=== PATIENT | female | born 1935 | race Caucasian/White ===

== ENCOUNTER → 2024-07-10 | Outpatient (CLI) | payer MEDICARE, SELFPAY ==
--- NOTE | 2024-07-10 09:01 | ECHOD_ITS ---
Reason For Study: AORTIC INSUFFICIENCY Procedure This was a 2D Doppler, Color Flow transthoracic echocardiogram. Exam performed in department. Left Ventricle Normal LV size. Left ventricular systolic function is normal. The left ventricular ejection fraction is 60 %. Stage 1 diastolic dysfunction. No regional wall motion abnormalities noted. Right Ventricle Normal RV size. Normal systolic function. Atria Normal left atrium. Normal right atrium. Mitral Valve Normal mitral valve. Mild (1+) mitral valve insufficiency. Tricuspid Valve Normal tricuspid valve. Mild (1+) tricuspid valve insufficiency. Pulmonary artery systolic pressure is 42 mmHg. Aortic Valve Trisinus/trileaflet aortic valve. Mild focal aortic valve calcification. Mild (1+) aortic valve insufficiency. Pulmonic Valve Normal pulmonic valve. Mild (1+) pulmonic valve insufficiency. Great Vessels Normal aortic root. The pulmonary artery is normal size. Inferior vena cava collapse with respiration. Pericardium/Pleural No pericardial effusion. MMode/2D Measurements & Calculations LVIDd: 4.7 cm IVSd: 1.0 cm LVOT diam: 1.8 cm LVIDs: 3.0 cm LVPWd: 1.0 cm LVOT area: 2.4 cm2 RVDd: 3.0 cm FS: 35.9 % asc Aorta Diam: 3.9 cm LAV(MOD-bp): 43.8 ml LVAd ap4: 19.9 cm2 LAV(MOD-bp) Indexed: 27.1 ml/m2 LVLd ap4: 6.6 cm LAV(MOD-sp2): 46.6 ml EDV(MOD-sp4): 50.7 ml LAV(MOD-sp4): 41.5 ml EDV(sp4-el): 50.6 ml LVAs ap4: 11.2 cm2 LVLs ap4: 5.7 cm ESV(MOD-sp4): 19.5 ml ESV(sp4-el): 18.7 ml EF(MOD-sp4): 61.5 % EF(sp4-el): 63.0 % LVAd ap2: 16.4 cm2 SV(MOD-sp4): 31.2 ml SV(MOD-sp2): 24.9 ml LVLd ap2: 6.3 cm SI(MOD-sp4): 19.3 ml/m2 SI(MOD-sp2): 15.4 ml/m2 EDV(MOD-sp2): 36.6 ml EDV(sp2-el): 36.0 ml LVAs ap2: 8.2 cm2 LVLs ap2: 5.2 cm ESV(MOD-sp2): 11.7 ml ESV(sp2-el): 11.0 ml EF(MOD-sp2): 68.1 % SV(sp4-el): 31.9 ml Ao sinus diam: 3.[address] Junction: 2.7 cm LA dimension(2D): 3.8 cm LA A4 area: 15.3 cm2 RA A4 area: 10.9 cm2 TAPSE: 1.7 cm Time Measurements MV dec time: 0.22 sec Doppler Measurements & Calculations MV E max zack: 33.9 cm/sec Lat Peak E' Zack: 8.0 cm/sec Med Peak E' Zack: 5.5 cm/sec MV A max zack: 66.5 cm/sec E/E' lat: 4.2 E/E' med: 6.1 MV E/A: 0.51 MV dec slope: 151.6 cm/sec2 Ao V2 max: 143.8 cm/sec AI max zack: 436.7 cm/sec Ao max P.3 mmHg AI max P.3 mmHg Ao V2 mean: 104.8 cm/sec AI dec slope: 308.7 cm/sec2 Ao mean P.8 mmHg AI P1/2t: 414.4 msec Ao V2 VTI: 28.4 cm AV (velocity ratio): 0.64 LIZZY(I,D): 1.5 cm2 LIZZY(V,D): 1.6 cm2 LV V1 max: 92.5 cm/sec SV(LVOT): 44.0 ml PA V2 max: 76.0 cm/sec LV V1 max P.4 mmHg PA max PG (full): 1.0 mmHg LV V1 mean P.3 mmHg LV V1 mean: 73.9 cm/sec LV V1 VTI: 18.2 cm TR max zack: 307.3 cm/sec TR max P.8 mmHg ECHO/Echo Complete Interpretation Summary Normal LV size. Left ventricular systolic function is normal. The left ventricular ejection fraction is 60 %. Stage 1 diastolic dysfunction. Mild (1+) aortic valve insufficiency. Ordering Physician: Kim Schaffer Referring Physician: Kim Schaffer Performed By: Hilary Lewis RDCS
== END | disposition home or self-care (01) ==
LOC: CVS 09:00
PROVIDERS: PCP Family Medicine; Referring Provider Family Medicine; Visit Provider Family Medicine
DX: I35.1 Nonrheumatic aortic (valve) insufficiency (principal)
CPT/HCPCS: 93306

== ENCOUNTER → 2024-11-27 | Outpatient (CLI) | payer MEDICARE, SELFPAY ==
--- NOTE | 2024-11-27 08:28 | BI_ITS ---
EXAM: SCRN MAMM (CAD)W/SUKHDEEP BILAT 11/27/2024 CLINICAL HISTORY: F, Age 89 y/o , SCREENING BREAST CANCER RISK ASSESSMENT:
== END | disposition home or self-care (01) ==
LOC: OPBI 08:27
PROVIDERS: PCP Family Medicine; Referring Provider Family Medicine; Visit Provider Family Medicine
DX: Z12.31 Encounter for screening mammogram for malignant neoplasm of breast (principal)
CPT/HCPCS: 77063; 77067

== ENCOUNTER 2025-02-04 08:56 | Outpatient (CLI) | payer MEDICARE, SELFPAY ==
[2025-02-04 10:10] LABS: Hematocrit 40.9 % (37-47); Hemoglobin 12.6 g/dL (12.0-15.0); Mean Corp Hgb Conc 30.8 g/dL (32-36); Mean Corpuscular Hgb 29.8 pg (27.0-32.0); Mean Corpuscular Volume 96.7 fL (81-99); Mean Platelet Vol. 10.6 fl (6.2-12.0); Platelet Count 149 K/mm3 (150-450); RBC Distribution Width SD 49.5 fl (35.1-43.9); Red Blood Count 4.23 M/mm3 (4.2-5.4); White Blood Count 8.3 K/mm3 (4.4-11.0)
--- OUTSIDE RECORDS SUMMARY | 2025-02-04 10:12 | XMS RPT_ITS | CCD ---
Author Organization [facility] Care Team Providers Care Laster Hand Name Role Phone Sarbjit DEVRIES, Dr. Alvarez Primary Care Provider Sarbjit DEVRIES, Dr. Alvarez Referring Provider Dr. Tyler Jones MD Attending Provider Dr. Kim Schaffer MD Attending Provider Dr. Kim Schaffer MD Primary Care Provider Sarbjit DEVRIES, Dr. Alvarez Referring Provider Dr. Damien Hampton MD Attending Provider [phone] Sarbjit, Kim Referring Unavailable Damien Hampton Attending Unavailable Miedel, Kim Primary Care Unavailable Miedel, Kim Referring Unavailable Edgar Pierce Attending Unavailable Miedel, Kim Primary Care Unavailable Tyler Jones Attending Unavailable Miedel, Kim Primary Care Unavailable Tyler Jones Attending Unavailable Miedel, Kim Primary Care Unavailable Miedel, Kim Referring Unavailable Miedel, Kim Referring Unavailable Miedel, Kim Attending Unavailable Miedel, Kim Primary Care Unavailable Leahel, Kim Attending Unavailable Lilyedel, Kim Primary Care Unavailable Karen Elwood Consulting Unavailable Miedel, Kim Referring Unavailable Miedel, Kim Primary Care Unavailable Edgar Pierce Attending Unavailable Miedel, Kim Referring Unavailable Allergies Allergy Classification Reported Allergen(s) Allergy Type Date of Onset Reaction(s) Facility (2 sources) Amoxicillin Drug Allergy 4 Rash [facility] (2 sources) Ampicillin Drug Allergy 4 Rash [facility] (2 sources) Sulfonamides (Antibiotic) Propensity to adverse reactions 4 Rash [facility] (1 source) Amoxicillin Drug Allergy 5 [facility] (1 source) Ampicillin Drug Allergy 5 [facility] (1 source) Sulfonamides (Antibiotic) Drug allergy (disorder) 5 [facility] Medications Current Medications Medication Drug Class(es) Dates Sig (Normalized) Sig (Original) [id number] 200 actuat albuterol 0.09 mg/actuat metered dose inhaler (2 sources) beta2-Adrenergic Agonist Start: 07-10-2024 Albuterol Sulfate (Ventolin Hfa) 90 mcg/actuation HFA aerosol inhaler Active 2 NMA INHALATION EVERY 4-6 HOURS as needed July 10, 2024 1:00am aspirin 81 mg chewable tablet (2 sources) Platelet Aggregation Inhibitor, Nonsteroidal Anti-inflammatory Drug Start: 07-10-2024 take 1 tablet by mouth once daily Aspirin 81 mg tablet,chewable Active 81 mg PO daily July 10, 2024 1:00am azelastine hydrochloride 0.137 mg/actuat / fluticasone propionate 0.05 mg/actuat metered dose nasal spray (2 sources) Corticosteroid, Histamine-1 Receptor Antagonist Start: 07-10-2024 Azelastine-Fluticaso ne 137-50 mcg/spray spray,non-aerosol Active 1 NMA INTRANASAL ONCE as needed July 10, 2024 1:00am administer into each nostril cholecalciferol 0.025 mg oral capsule (2 sources) Vitamin D Start: 07-10-2024 take 1 capsule by mouth once daily Cholecalciferol (Vitamin D3) 25 mcg (1,000 unit) capsule Active 25 ug PO daily July 10, 2024 1:00am citalopram 10 mg oral tablet (1 source) Serotonin Reuptake Inhibitor Start: 02-03-2025 take 1 tablet by mouth once daily Citalopram 10 mg tablet Active 10 mg PO daily February 03, 2025 12:00am estradiol 0.1 mg/ml vaginal cream (2 sources) Estrogen Start: 08-09-2024 Estradiol 0.01 % (0.1 mg/gram) cream Active VAGINAL August 09, 2024 1:00am loratadine 10 mg oral tablet (2 sources) Start: 07-10-2024 take 1 tablet by mouth once daily Loratadine (Allergy Relief (Loratadine)) 10 mg tablet Active 10 mg PO daily July 10, 2024 1:00am magnesium oxide 400 mg oral tablet (2 sources) Start: 08-09-2024 take 1 tablet by mouth once daily Magnesium Oxide 400 mg magnesium tablet Active 400 mg PO daily August 09, 2024 1:00am omeprazole 20 mg delayed release oral capsule (2 sources) Proton Pump Inhibitor Start: 07-10-2024 take 1 capsule by mouth once daily Omeprazole 20 mg capsule,delayed release(DR/EC) Active 20 mg PO daily July 10, 2024 1:00am simvastatin 40 mg oral tablet (2 sources) HMG-CoA Reductase Inhibitor Start: 07-10-2024 take 1 tablet by mouth at bedtime Simvastatin 40 mg tablet Active 40 mg PO AT BEDTIME July 10, 2024 1:00am Completed/Discontinued Medications Medication Drug Class(es) Dates Sig (Normalized) Sig (Original) Carica Papaya (Papaya Enzyme) tablet (2 sources) Start: 07-10-2024 End: 02-03-2025 take 1 tablet by mouth once daily at mealtime Carica Papaya (Papaya Enzyme) tablet Discontinued 1 {tbl} PO DAILY July 10, 2024 1:00am February 03, 2025 2:07pm administer with meals Start: 07-10-2024 take 1 tablet by shanika th once daily at mealtime Carica Papaya (Papaya Enzyme) tablet Active 1 {tbl} PO DAILY July 10, 2024 1:00am administer with meals Problems Problem Classification Problem Date Documented Date Episodic/Chronic Cardiac dysrhythmias (2 sources) Supraventricular tachycardia; Translations: [Supraventricular tachycardia] 08-09-2024 Chronic Chronic obstructive pulmonary disease and bronchiectasis (2 sources) Pulmonary emphysema; Translations: [Emphysema, unspecified] 08-09-2024 Chronic Conditions associated with dizziness or vertigo (3 sources) Dizziness; Translations: [Dizziness and giddiness] 08-09-2024 Episodic Delirium, dementia, and amnestic and other cognitive disorders (3 sources) Dementia; Translations: [Unspecified dementia without behavioral disturbance] Onset: 02-03-2025 02-03-2025 Chronic Disorders of lipid metabolism (3 sources) Hyperlipidemia; Translations: [Hyperlipidemia, unspecified] Onset: 08-21-2024 08-09-2024 Chronic Esophageal disorders (2 sources) Gastroesophageal reflux disease; Translations: [Gastro-esophageal reflux disease without esophagitis] 08-09-2024 Chronic Heart valve disorders (3 sources) Aortic valve regurgitation; Translations: [Nonrheumatic aortic (valve) insufficiency] Onset: 08-21-2024 08-09-2024 Chronic Mood disorders (2 sources) Depressive disorder; Translations: [Depression] 08-19-2024 Chronic Comment on above: Pre-existing diagnos is of depression which may be complicating a diagnosis of cognitive impairment. Nutritional deficiencies (2 sources) Vitamin D deficiency; Translations: [Vitamin D deficiency, unspecified] 08-09-2024 Chronic Osteoarthritis (2 sources) Arthritis; Translations: [Unspecified osteoarthritis, unspecified site] 08-09-2024 Chronic Other diseases of bladder and urethra (2 sources) Overactive bladder; Translations: [Overactive bladder] 08-09-2024 Chronic Other lower respiratory disease (2 sources) Fibrosis of lung; Translations: [Pulmonary fibrosis, unspecified] 08-09-2024 Chronic Other nervous system disorders (4 sources) Impaired cognition; Translations: [Other symptoms and signs involving cognitive functions and awareness] 08-09-2024 Episodic Comment on above: This patient was see n for possible dementia. In office testing showed that she recalled 3 out of 3 objects and that her Mini-Mental status exam was 30/30. This seems to be contradictory to the diagnosis of dementia.Patient does have a diagnosis of depression. 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 Other screening for suspected conditions (not mental disorders or infectious disease) (1 source) Encounter for screening mammogram for malignant neoplasm of breast; Translations: [Encounter for screening mammogram for malignant neoplasm of breast] Onset: 12-01-2024 Episodic Pulmonary heart disease (3 sources) Pulmonary hypertension; Translations: [Pulmonary hypertension, unspecified] Onset: 08-21-2024 08-09-2024 Chronic Residual codes; unclassified (2 sources) Insomnia; Translations: [Insomnia, unspecified] 08-09-2024 Episodic Unclassified (1 source) Supraventricular tachycardia, unspecified; Translations: [Supraventricular tachycardia, unspecified] Onset: 08-21-2024 Results Test Name Value Interpretation Reference Range Facility Neurology Visit Reporton Neurology Visit Report [facility] [address], [address] [place] [id number] OFFICE VISIT Date of Service: 02/03/25 MR#: [id number] Acct: [id number] Name: SHYLA KENYON Rep #: [id number] : 1935 Provider: Dr. Damien aceves MD Age/Sex: 89/F Location: [facility] Status: Signed HPI HPI Details: History: The patient is an 89-year-old right-handed woman with a past medical history of pulmonary fibrosis, vitamin D deficiency, cardiac ablation for SVT in 2003, and hyperlipidemia who presents for evaluation of memory loss. She is accompanied by her daughter. She began to exhibit memory difficulty around 2019. Her memory difficulty has been worsened over time. She has a tendency to forget conversations and to repeat conversations. She had some difficulty with making decisions regarding her finances and her finances are now managed by family members. She lives with her son and [id number]. She remains independent in basic activities of daily living at home. She no longer drives. When she had previously driven she had become lost in a familiar location. She has difficulty recalling past events. She has had 2 COVID-19 infections the last of which occurred in 2022 and she had had associated fatigue. She denies having hearing loss, numbness, headaches or visual field loss. She has vague weakness in both legs. She experiences occasional disequilibrium with position change. She has some anxiety. She denies having depression. She had undergone neuropsychological testing on 06/27/2023 in [place] and a report seen on a cell phone available today reported that the patient had some difficulty with working memory, problem-solving and verbal function. Mini-Mental status exam score was 26/30 on 07/10/2024. Past Medical History: As above. There is no history of hypertension, diabetes mellitus, heart disease, stroke, seizure, thyroid disease, cancer, renal disease, or sleep apnea. Social History: There is no history of smoking tobacco. There is no history of alcohol abuse or illicit drug use. She graduated from high school. Family History: There is no family history of cerebral aneurysm, stroke, seizure, or dementia. Review of Systems: As above. The patient has not had any recent fever, rash, weight change, chest pain, shortness of breath, gastrointestinal problems or urinary problems. She has some insomnia. She feels well rested when she awakens in the morning. She denies having depression. She has anxiety. Physical Exam: General: Well-developed, well-nourished female in no acute distress. Neuro: The patient is awake; she is mildly bradyphrenic; speech is fluent; basic conversational language function is within normal limits; Mini-Mental status exam score is 27/30 Cranial nerves: PERRL, 3mm bilaterally; EOMI; visual munguia are full; visual acuity is 20/200 on the right and 20/40 on the left; face is symmetrical; tongue is midline; there are no deficits to pinprick Cerebellar system: No nystagmus or dysmetria Deep tendon reflexes: +2 at the ankles, biceps bilaterally, triceps bilaterally, and brachioradialis bilaterally and +3 at the knees; plantar responses are downward bilaterally Motor: Strength 5/5 in the biceps bilaterally, abductor pollicis brevis muscles bilaterally, first dorsal interosseous muscles bilaterally, quadriceps bilaterally and foot dorsiflexors bilaterally; no drift Sensory: Decreased vibration is noted in the feet; there are no deficits to soft touch or pinprick Gait: Slightly slow HEENT: Normocephalic; atraumatic; tympanic membranes are clear Neck: No bruits Heart: Regular rhythm and rate Extremities: No cyanosis or edema; dorsalis pedis pulses are +2 bilaterally Supplemental Info Cardiac echo (07/10/2024): Normal LV size. Left ventricular systolic function is normal. The left ventricular ejection fraction is 60 %. Stage 1 diastolic dysfunction. Mild (1+) aortic valve insufficiency. EKG (08/21/2024): Sinus rhythm. Left axis. Anterior fascicular block. Voltage criteria for LVH (R (aVL) exceeds 1.01 mV). Voltage criteria without ST/T abnormality may be normal. Old anterior infarct. Abnormal EKG. Assessment and Plan Assessment and Plan (1) Dementia: Status: Acute (2) Vitamin D deficiency: Status: Acute Orders: Orders Brain without Contrast Today F03.90 - Unspecified dementia, unspecified severity, without behavioral disturbance, psychotic disturbance, mood disturbance, and anxiety Vitamin D 1,25-Dihydroxy Today E55.9 - Vitamin D deficiency, unspecified, F03.90 - Unspecified dementia, unspecified severity, without behavioral disturbance, psychotic disturbance, mood disturbance, and anxiety VITAMIN B6 Today F03.90 - Unspecified dementia, unspecified severity, without behavioral disturbance, psychotic disturbance, mood disturbance, and anxiety Vitamin B12 Today F03.90 - Unspecif (more content not included)... Normal [facility] Breast imaging reportOrdered By: Dahiana Serrano on 11-28-2024 Study report [facility] [address] [place] [address] SCRN MAMM (CAD)W/SUKHDEEP BILAT MR#: [id number] Acct: [id number] Name: SHYLA KENYON Rep #: [id number] : 1935 F 89 From: Mario Serrano DO PCP: Dr. Kim Schaffer MD Status: [facility] Study:SCRN MAMM (CAD)W/SUKHDEEP BILAT Date of Exa m: 11/27/24 Exam# [id number] Ordering Dr: Thomas Schaffer MD EXAM: SCRN MAMM (CAD)W/SUKHDEEP BILAT 11/27/2024 CLINICAL HISTORY: F, Age 89 y/o , SCREENING BREAST CANCER RISK ASSESSMENT: Has not been calculated. TECHNIQUE: Bilateral screening digital breast tomosynthesis with 2D images. Computer aided detection. COMPARISON: Prior exam(s) dated mammogram dated 12/15/2022 and 06/29/2020. FINDINGS: TISSUE DENSITY: The breast tissue is heterogenously dense, which may obscure small masses. Bilateral Breast Mammographic Findings: There are no other dominant masses, areas of architectural distortion, or suspicious calcifications in either breast. Benign-appearing macrocalcifications, round microcalcifications and vascular calcifications are seen in both breasts. A stable benign-appearing intramammary lymph node in the superior outer far posterior aspect of the left breast is noted. A stable 2.8 cm nodular masslike density is seen in the retroareolar region, middle 3rd aspect of the left breast.. BI/SCRN MAMM (CAD)W/SUKHDEEP BILAT IMPRESSION: Right Breast: BIRADS 2 BENIGN FINDING. Left Breast: BIRADS 2 BENIGN FINDING. OVERALL FINAL ASSESSMENT: BIRADS 2 BENIGN FINDING RECOMMENDATION: Routine annual follow-up in 1 Year A letter with findings and recommendations will be mailed to the patient. Reading Location: [id number]-[id number] CC: Dr. Kim Schaffer MD ~ Drum Sander Offbearer: Signed [facility] SCRN MAMM (CAD)W/SUKHDEEP BILATo n 11-27-2024 SCRN MAMM (CAD)W/SUKHDEEP BILAT [facility] [address] [place] [id number] SCRN MAMM (CAD)W/SUKHDEEP BILAT MR#: [id number] Acct: [id number] Name: SHYLA KENYON Rep #: [id number] : 1935 F 89 From: Dahiana Dudley O PCP: Dr. Kim Schaffer MD Status: REG [facility] Study: SCRN MAMM (CAD)W/SUKHDEEP BILAT Date of Exam: 11/03 02/26 Exam# [id number] Ordering Dr: Kim Schaffer MD EXAM: SCRN MAMM (CAD)W/SUKHDEEP BILAT 11/27/2024 CLINICAL HISTORY: F, Age 89 y/o , SCREENING BREAST CANCER RISK ASSESSMENT: Has not been calculated. TECHNIQUE: Bilateral screening digital breast tomosynthesis with 2D images. Computer aided detection. COMPARISON: Prior exam(s) dated mammogram dated 12/15/2022 and 06/29/2020. FINDINGS: TISSUE DENSITY: The breast tissue is heterogenously dense, which may obscure small masses. Bilateral Breast Mammographic Findings: There are no other dominant masses, areas of architectural distortion, or suspicious calcifications in either breast. Benign-appearing macrocalcifications, round microcalcifications and vascular calcifications are seen in both breasts. A stable benign-appearing intramammary lymph node in the superior outer far posterior aspect of the left breast is noted. A stable 2.8 cm nodular masslike density is seen in the retroareolar region, middle 3rd aspect of the left breast.. BI/SCRN MAMM (CAD)W/SUKHDEEP BILAT IMPRESSION: Right Breast: BIRADS 2 BENIGN FINDING. Left Breast: BIRADS 2 BENIGN FINDING. OVERALL FINAL ASSESSMENT: BIRADS 2 BENIGN FINDING RECOMMENDATION: Routine annual follow-up in 1 Year A letter with findings and recommendations will be mailed to the patient. Reading Location: NNP-[id number] CC: Dr. Kim Schaffer MD Drum Sander Offbearer: Signed [facility] 12 Lead EKG performed by [facility] [place] 08-21-2024 12 Lead EKG performed by [address] [address] 12 Lead EKG performed by [facility] 08/21/24906 MR#: [id number] Acct: [id number] Name: SHYLA KENYON Rep #: [id number] : 1935 89 From: Tyler Jones MD Attending Dr: Dr. Tyler Jones MD Status: DEP A MB Ordering Dr: Tyler Jones MD Date: 08/21/24 [place] [facility] [place] Sex: F C Admitted: [facility]/12 Lead EKG performed by [facility] ECG Report Interpretation --Sinus Rhythm -Left axis -anterior fascicular block. Voltage criteria for LVH (R(aVL) exceeds 1.01 mV) -Voltage criteria w/o ST/T abnormality may be normal. -Old anterior infarct. ABNORMAL Electronically signed on 08/29/2024 at 09:48 by Tyler Jones [employer] Version 8610 08/29/24950 Date Tyler Jones MD CC: Dr. Kim Schaffer MD Date Dictated: 08/21/24906 Date Transcribed: 08/21/24906 Drum Sander Offbearer: [place] Signed Normal [facility] Cardiology Visit Reporton Cardiology Visit Report [facility] [address] [place] [address] OFFICE VISIT Date of Service: 08/21/24 MR#: [id number] Acct: [id number] Name: SHYLA KENYON Rep #: [id number] : 1935 Provider: Dr. Tyler Jones MD Age/Sex: 89/F Location[place] [facility] Status: Signed HPI HPI History of Present Illness Details: Pleasant 89-year-old lady who is here for establishment of cardiac care. She recently moved here from [place] and is accompanied by her daughter. She has had some intermittent dizziness which she says started after COVID over 2 years ago. She thinks that she was put on midodrine while she was in [place] but she has actually discontinued this. Her daughter thinks that she has had little interest in her surroundings but has not had any diaphoresis chest pain syncope or near syncope. She has not had any major cardiac studies performed in the past. Her last lipid profile demonstrated a total cholesterol 261 HDL of 58 and LDL of 167. She did undergo an echocardiographic evaluation which demonstrated an ejection fraction of 60%, stage I diastolic dysfunction and mild aortic regurgitation. She does have mild focally calcified aortic valves. Her physical exam here demonstrates clear lung munguia regular rate and rhythm is soft 1/6 systolic murmur noted left sternal border and no pedal edema electrocardiogram demonstrates sinus rhythm with a left anterior fascicular block and a rate of 80 bpm. Intake Vital Signs 07/10/24 12:37 08/21/24 09:06 Height 5 ft 2 in 5 ft 2 in Weight: 140 lb 10 oz 139 lb 5 oz BMI 25.7 25.4 BP 138/80 H 106/68 Blood Pressure Location Lt brachial Lt brachial Position Sitting Sitting Respiration 17 16 Pulse 86 92 Pulse Source Monitor Monitor Temp 98.2 F Pulse Oximetry (%) 96 Oxygen Delivery Method room air Intake Visit Reasons: ESTABLISH (MIEDEL) Certified Medical Asst Required: No Accompanied by: Daughter Is patient in pain?: No Allergies amoxicillin Adverse Reaction (Mild, Verified 08/21/24 09:09) Rash Sulfa (Sulfonamide Antibiotics) Adverse Reaction (Mild, Verified 08/21/24 09:09) Rash ampicillin Adverse Reaction (Verified 08/21/24 09:09) Rash Medications ???Medication ???Instructions ???Recorded ???Confirmed ???Type albuterol sulfate 90 mcg/actuation 2 puff inhalation Q4-6H PRN 07/10/24 08/21/24 History aerosol inhaler (Ventolin HFA) aspirin 81 mg chewable tablet 81 mg PO QDAY 07/10/24 08/21/24 History azelastine 137 mcg-fluticasone 50 1 spray intranasal ONCE PRN 07/10/24 08/21/24 History mcg/spray nasal spray carica papaya (Papaya Enzyme 1 tab PO DAILY 07/10/24 08/21/24 History tablet) cholecalciferol (vitamin D3) 25 25 mcg PO QDAY 07/10/24 08/21/24 History mcg (1,000 unit) capsule loratadine 10 mg tablet (Allergy 10 mg PO QDAY 07/10/24 08/21/24 History Relief (loratadine)) omeprazole 20 mg capsule,delayed 20 mg PO QDAY 07/10/24 08/21/24 History release simvastatin 40 mg tablet 40 mg PO QHS 07/10/24 08/21/24 History estradiol 0.01% (0.1 mg/gram) vaginal 08/09/24 08/21/24 History vaginal cream magnesium oxide 400 mg PO QDAY 08/09/24 08/21/24 History Have you fallen in the past year?: No PFSH Medical History Dizziness SVT (supraventricular tachycardia) Pulmonary emphysema Pulmonary hypertension Overactive bladder Insomnia Vitamin D deficiency Pulmonary fibrosis Cognitive impairment Depression Aortic insufficiency GERD (gastroesophageal reflux disease) Arthritis Hyperlipidemia Surgical History History of radiofrequency ablation procedure for cardiac arrhythmia ( 2003) History of hysterectomy H/O breast biopsy History of tonsillectomy Family History Mother Heart disease Father CHF (congestive heart failure) Social History household members: family housing: house Smoking Status: Never smoker alcohol intake: never substance use type: does not use what type of physical activity do you participate in: walking frequency: 1-2 times per week seatbelt use: always do you feel safe at home: Yes ROS Const Const: Positive for fatigue and difficulty sleeping (issues falling asleep and getting up through the night); Negative for weakness, headache(s) or daytime sleepiness ENT ENT: Positive for dizziness (mostly with position changes) and balance problems; Negative for headache(s) or Nosebleed/epistaxis Cardio Chest Pain: No Palpitations: No Edema: None Resp Respiratory: Positive for SOB with activity; Negative for SOB at rest, SOB orthopnea SOB lying down or Cough GI GI: Negative (more content not included)... Normal [facility] Echo Completeon 07-10-2024 Echo Complete [facility] [address] [place] [address] Echo Complete 07/10/24 0904 MR#: [id number] Acct: [id number] Name: SHYLA KENYON Rep #: [id number] : 1935 89 From: Tyler Jones MD Attending Dr: Dr. Kim Schaffer MD Status: REG I Ordering Dr: Kim Schaffer MD Date: 07/10/24 Location: [facility] Sex: F C Admitted: Reason For Study: AORTIC INSUFFICIENCY Procedure This was a 2D Doppler, Color Flow transthoracic echocardiogram. Exam performed in department. Left Ventricle Normal LV size. Left ventricular systolic function is normal. The left ventricular ejection fraction is 60 %. Stage 1 diastolic dysfunction. No regional wall motion abnormalities noted. Right Ventricle Normal RV size. Normal systolic function. Atria Normal left atrium. Normal right atrium. Mitral Valve Normal mitral valve. Mild (1+) mitral valve insufficiency. Tricuspid Valve Normal tricuspid valve. Mild (1+) tricuspid valve insufficiency. Pulmonary artery systolic pressure is 42 mmHg. Aortic Valve Trisinus/trileaflet aortic valve. Mild focal aortic valve calcification. Mild (1+) aortic valve insufficiency. Pulmonic Valve Normal pulmonic valve. Mild (1+) pulmonic valve insufficiency. Great Vessels Normal aortic root. The pulmonary artery is normal size. Inferior vena cava collapse with respiration. Pericardium/Pleural No pericardial effusion. MMode/2D Measurements Calculations LVIDd: 4.7 cm IVSd: 1.0 cm LVOT diam: 1.8 cm LVIDs: 3.0 cm LVPWd: 1.0 cm LVOT area: 2.4 cm2 RVDd: 3.0 cm FS: 35.9 % asc Aorta Diam: 3.9 cm LAV(MOD-bp): 43.8 ml LVAd ap4: 19.9 cm2 LAV(MOD-bp) Indexed: 27.1 ml/m2 LVLd ap4: 6.6 cm LAV(MOD-sp2): 46.6 ml EDV(MOD-sp4): 50.7 ml LAV(MOD-sp4): 41.5 ml EDV(sp4-el): 50.6 ml LVAs ap4: 11.2 cm2 LVLs ap4: 5.7 cm ESV(MOD-sp4): 19.5 ml ESV(sp4-el): 18.7 ml EF(MOD-sp4): 61.5 % EF(sp4-el): 63.0 % LVAd ap2: 16.4 cm2 SV(MOD-sp4): 31.2 ml SV(MOD-sp2): 24.9 ml LVLd ap2: 6.3 cm SI(MOD-sp4): 19.3 ml/m2 SI(MOD-sp2): 15.4 ml/m2 EDV(MOD-sp2): 36.6 ml EDV(sp2-el): 36.0 ml LVAs ap2: 8.2 cm2 LVLs ap2: 5.2 cm ESV(MOD-sp2): 11.7 ml ESV(sp2-el): 11.0 ml EF(MOD-sp2): 68.1 % SV(sp4-el): 31.9 ml Ao sinus diam: 3.[address] Junction: 2.7 cm LA dimension(2D): 3.8 cm LA A4 area: 15.3 cm2 RA A4 area: 10.9 cm2 TAPSE: 1.7 cm Time Measurements MV dec time: 0.22 sec Doppler Measurements Calculations MV E max zack: 33.9 cm/sec Lat Peak E' Zack: 8.0 cm/sec Med Peak E' Zack: 5.5 cm/sec MV A max zack: 66.5 cm/sec E/E' lat: 4.2 E/E' med: 6.1 MV E/A: 0.51 MV dec slope: 151.6 cm/sec2 Ao V2 max: 143.8 cm/sec AI max zack: 436.7 cm/sec Ao max P.3 mmHg AI max P.3 mmHg Ao V2 mean: 104.8 cm/sec AI dec slope: 308.7 cm/sec2 Ao mean P.8 mmHg AI P1/2t: 414.4 msec Ao V2 VTI: 28.4 cm AV (velocity ratio): 0.64 LIZZY(I,D): 1.5 cm2 LIZZY(V,D): 1.6 cm2 LV V1 max: 92.5 cm/sec SV(LVOT): 44.0 ml PA V2 max: 76.0 cm/sec LV V1 max P.4 mmHg PA max PG (full): 1.0 mmHg LV V1 mean P.3 mmHg LV V1 mean: 73.9 cm/sec LV V1 VTI: 18.2 cm TR max zack: 307.3 cm/sec TR max P.8 mmHg ECHO/Echo Complete Interpretation Summary Normal LV size. Left ventricular systolic function is normal. The left ventricular ejection fraction is 60 %. Stage 1 diastolic dysfunction. Mild (1+) aortic valve insufficiency. Ordering Physician: Kim Schaffer Referring Physician: Kim Schaffer Performed By: Hilary Lewis, CS 07/10/24 1221 Date Tyler Jones MD CC: Dr. Kim Schaffer MD Date Dictated: 07/10/2404 Date Transcribed: 07/10/241220 Drum Sander Offbearer: Signed Normal [facility] Neurology Visit Reporton Neurology Visit Report [facility] [address] [place] [address], [address] [place] [address] OFFICE VISIT Date of Service: 07/10/24 MR#: [id number] Acct: [id number] Name: SHYLA KENYON Rep #: [id number] : 1935 Provider: Dr. Edgar ramirez MD Age/Sex: 89/F Location: [facility] Status: Signed with Addenda ADDENDUM by Dr. Edgar Pierce MD on 08/19/24 at 1433 HPI Details: SHYLA KENYON, is a 89 F who presents to the office today for Assessment and Plan Assessment and Plan (1) Cognitive impairment: Status: Chronic Comment: This patient was seen for possible dementia. In office testing showed that she recalled 3 out of 3 objects and that her Mini-Mental status exam was 30/30. This seems to be contradictory to the diagnosis of dementia. Patient does have a diagnosis of depression. 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 Further evaluation may be assisted by neuropsychological testing for better characterization of the symptom complex. Plan: 1. Patient did undergo formal neuropsych testing to help define psychiatric versus organic neurological dysfunction. 2. Patient will return to neurology clinic in 6 months for reassessment. (2) Depression: Status: Chronic Qualifiers: Depression Type: unspecified Qualified Code(s): F32.A - Depression, unspecified Comment: Pre-existing diagnosis of depression which may be complicating a diagnosis of cognitive impairment. Plan: 1. Neuropsych testing. Please see above. 08/19/24 1433 Date Edgar Pierce MD cc: * Signed HPI HPI Chief Complaint: Est Care Details: The patient is 89 years old right handed female who presents to [facility]. She was referred by [facility] by PA. Nicole for mild cognitive impairment. This patient is accompanied by her daughter. Patient seen by me and nurse practitioner Criss. Patient had been living in [place] for a period of time. Her had her at 1 point. Patient was then living with a boyfriend in [place] in a condo who within the past year. Patient seems to have had some difficulty with cognitive performance. Patient has had memory testing and evaluations performed in [place] which suggest that she does have cognitive impairment. Patient has been offered Aricept for management of memory defect however she has refused this. Various attempts to get the patient engage in the community or to become active on her own behalf have been declined by the patient. Patient seems to want to watch TV and do much of anything else. She seems to lack initiative and may be withdrawn to a certain degree. Exact cause for this is not entirely clear. Various scales to check for depression as well as a dementia have shown minor changes consistent with active depression or advanced dementia. It seems that it is difficult to assign a specific diagnosis at this time. Possibility that patient may be experiencing some grieving or change in overall life status since the of her boyfriend may be playing a role at this time. For example Mini-Mental status recently performed was scored 30/30. This does not seem to be consistent with the patient who has manifested dementia otherwise. In attempts to gain information from the patient she seems to be rather laconic all. She simply says that she watches TV during the day. She is not interested in taking medicines. She is not interested in becoming engaged in activities or volunteering during the day. Her finances are being managed by family. Patient is not driving a vehicle at this time. Patient did have 1 episode while in [place] of not being able to find her way home from a store. ROS: General Patient indicates that she has had COVID x 2. She did not require hospitalization. These took place perhaps a year or so ago. No fever or cough at this time. She does have a sore throat and presented to neurology clinic wearing a mask Eyes no loss of vision ears intact hearing Respiratory without cough or hemoptysis Heart history of ablation in remote past no palpitations or chest pain Abdomen no constipation does not vomit blood or passed blood in stool patient is continent. She has no hematuria Extremities without trauma or injury from falls Skin without rashes although she may have some seborrheic keratoses on her neck for which she is to see a polarity tester. Psychiatric patient seems to deny depression but does indicate that she has a certain degree of anxiety. She notes early a.m. anxiety. Exam Const Other: Vital signs show blood pressure 138/80 pulse 86 respiration 17 temperature 98.2 O2 sat 96% BMI is 25.7%. No recent weight loss General Patient sitting in chair comfortably wearing a mask. She states she has a sore throat (more content not included)... Normal [facility] Vital Signs Date Time Vital Sign Value Performing Clinician Cam mckinney 02-03-2025 13:58-0400 Body height 157.[address] Kim Schaffer MD Work Phone: [facility] 02-03-2025 13:58-0400 Body mass index (BMI) [Ratio] 24.8 kg/m2 Dr. Kim Schaffer MD Work Phone: [facility] 02-03-2025 13:58-0400 Body temperature 98.4 [degF] Dr. Kim Schaffer MD Work Phone: [facility] 02-03-2025 13:58-0400 Body weight 61.[address] Kim Schaffer MD Work Phone: [facility] 02-03-2025 13:58-0400 Diastolic blood pressure 67 mm[Hg] Dr. Kim Schaffer MD Work Phone: [facility] 02-03-2025 13:58-0400 Heart rate 50 /min Dr. Kim Schaffer MD Work Phone: [facility] 02-03-2025 13:58-0400 Respiratory rate 17 /min Dr. Kim Schaffer MD Work Phone: [facility] 02-03-2025 13:58-0400 SaO2% (BldA) [Mass fraction] 96 % Dr. Kim Schaffer MD Work Phone: [facility] 02-03-2025 13:58-0400 Systolic blood pressure 119 mm[Hg] Dr. Kim Schaffer MD Work Phone: [facility] 08-21-2024 09:06-0500 Body height 157.[address] Kim Schaffer MD Work Phone: [facility] 08-21-2024 09:06-0500 Body mass index (BMI) [Ratio] 25.4 kg/m2 Dr. Kim Schaffer MD Work Phone: [facility] 08-21-2024 09:06-0500 Body weight 63.[address] Kim Schaffer MD Work Phone: [facility] 08-21-2024 09:06-0500 Diastolic blood pressure 68 mm[Hg] Dr. Kim Schaffer MD Work Phone: [facility] 08-21-2024 09:06-0500 Heart rate 92 /min Dr. Kim Schaffer MD Work Phone: [facility] 08-21-2024 09:06-0500 Respiratory rate 16 /min Dr. Kim Schaffer MD Work Phone: [facility] 08-21-2024 09:06-0500 Systolic blood pressure 106 mm[Hg] Dr. Kim Schaffer MD Work Phone: [facility] Encounters Encounter Date Encounter Type Care Provider Facility Start: 02-03-2025 End: 02-03-[address] Damien Hampton MD -[facility] Work Phone: Start: 02-03-2025 End: 02-03-[address] Kim Schaffer MD Work Phone: [facility] Work Phone: Start: 01-14-2025 ambulatory [facility] Facility: [facility] Start: 11-27-2024 End: 11-27-[address] Kim Schaffer MD Work Phone: [facility] Work Phone: Start: 11-27-2024 End: 11-27-[address] Kim Schaffer MD [facility] Work Phone: Start: 11-27-2024 End: [facility] Start: 08-21-2024 End: 08-21-[address] Tyler Jones MD -[facility] Work Phone: Start: 08-21-2024 End: 08-21-2024 ambulatory Tyler Jones Facility:[facility] Start: 07-10-2024 End: [facility] Start: 07-10-2024 ambulatory Tyler Jones Facility:[facility] Start: 07-10-2024 End: 07-10-2024 ambulatory [facility] Facility:[facility] Procedures Date Procedure Procedure Detail Performing Clinician Start: 11-27-2024 Screening mammography Luis Enrique Schaffer MD Work Phone: Start: 08-21-2024 Evaluation of diagno stic study results Dr. Kim Schaffer MD Work Phone: Plan of Treatment Date Care Activity Detail Author MR Brain WO contrast [facility] Payers Date Payer Category Payer Self-pay 2024 Private Health Insurance [id number] Medicare MEDICARE PART A B [id number] Unknown [id number] Unknown [id number] Unknown [id number] Unknown [id number] Unknown [id number] Unknown [id number] Unknown [id number] Social History Date Type Detail Facility Start: 07-10-2024 Tobacco smoking stat [facility] Never smoked tobacco (finding) [facility] Start: 12-01-2024 Sex Female (finding) [facility] Start: 1935 Sex Assigned At Female W [facility] Evaluation note 08-21-2024 Note Date & Type Note Facility 08-21-2024 Evaluation note Diagnosis Onset Date Resolution Dizziness acute August 21, 2024 9:05am [facility] Work Phone: Evaluation note Note Date & Type Note Facility Evaluation note Diagnosis Onset Date Resolution Dementia acute February 03, 2025 1:55pm [facility] Work Phone: Reason for referral (narrative) Note Date & Type Note Facility Reason for referral (narrative) No reason for referral information available [facility] Work Phone: Chief Complaint and Reason for Visit Chief Complaint Admit Date ESTABLISH (MIEDEL) August 21, 2024 9:05am SCREENING November 27, 2024 8:0 3am Reason for Visit Admit Date Dizziness August 21, 2024 9:05am Chief Complaint Admit Date SCREENING November 27, 2024 8:0 3am EST CARE-6 M FU February 03, 2025 1:55p m Reason for Visit Admit Date Dementia February 03, 2025 1:55p m Family History No Family History Records Found Relationship Condition Age at Onset Recorded Date/T yessica mother Cardiac disease Unknown father Congestive heart failure Unknown Summary Purpose Advance Directives No Advanced Directives Records Found Additional Source Comments Care Teams (unrecognized sec tion and content) Team Status: Active Member Role Status Dates Dr. Kim Schaffer MD Primary Care Provider Active Team Status: Inactive Member Role Status Dates Dr. Kim Schaffer MD Primary Care Provider Active Start: August 21, 2024 End: August 21, 2024 Dr. Kim Schaffer MD Referring Provider Active Start: August 21, 2024 End: August 21, 2024 Dr. Tyler Jones MD Attending Provider Active S tart: August 21, 2024 End: August 21, 2024 Team Status: Inactive Member Role Status Dates Dr. Kim Schaffer MD Primary Care Provider Active Start: November 27, 2024 End: November 27, 2024 Dr. Kim Schaffer MD Attending Provider Active Start: November 27, 2024 End: November 27, 2024 Dr. Kim Schaffer MD Referring Provider Active Start: November 27, 2024 End: November 27, 2024 Team Status: Inactive Member Role Status Dates Dr. Kim Schaffer MD Primary Care Provider Active Start: February 03, 2025 End: February 03, 2025 Dr. Kim Schaffer MD Referring Provider Active Start: February 03, 2025 End: February 03, 2025 Dr. Damien Hampton MD Attending Provider Active Start: February 03, 2025 End: February 03, 2025 Goals (unrecognized section and content) Goals may be documented in a n alternate sectionGoals may be documented in an alternate section INFORMATION SOURCE (unrecogn ized section and content) DATE CREATED AUTHOR 02/04/2025 [facility] FOR RECORDS PERTAINING TO PATIENTS WHO ARE OR HAVE BEEN ENROLLED IN A CHEMICAL DEPENDENCY/SUBSTANCEABUSE PROGRAM, SOME INFORMATION MAY BE OMITTED. This clinical summary was aggregated from multiple sources. Caution should be exercised in using it in the provision of clinical care. This summary normalizes information from multiple sources, and as a consequence, information in this document may materially change the coding, format and clinical context of patient data. In addition, data may be omitted in some cases. CLINICAL DECISIONS SHOULD BE BASED ON THE PRIMARY CLINICAL RECORDS. [facility] [employer] [facility]. provides no warranty or guarantee of the accuracy or completeness of information in this document.
[2025-02-04 11:25] LABS: ALB/GLOB Ratio 1.4 RATIO (0.9-2.4); AST(SGOT) 17 U/L (<=31); Alanine Aminotransfer ALT/SGPT 11 U/L (<=34); Albumin, Serum 4.3 g/dL (3.4-4.8); Alkaline Phosphatase 61 U/L (35-104); Anion Gap 10 (5-15); BUN 15 mg/dL (4-19); BUN/Creat Ratio 18.4 RATIO (10-20); Calcium,Total 9.6 mg/dL (7.6-11.0); Carbon Dioxide 25.2 mmol/L (21.0-32.0); Chloride 105 mmol/L (98-108); EST Glomerular Filtration Rate 71 (>60); Glucose 96 mg/dL (70-99); Potassium 4.8 mmol/L (3.3-5.1); Protein, Total 7.3 g/dL (5.9-8.4); Sodium Level 140 mmol/L (133-145); Total Bilirubin 0.56 mg/dL (0.00-1.30); Vitamin B12 380 pg/mL (180-914)
[2025-02-06 13:08] LABS: Vitamin D 1,25-Dihydroxy 55.5 pg/mL (24.8-81.5)
[2025-02-06 16:09] LABS: Folate, RBC (Hct) Test 39.9 % (34.0-46.6); Folates, RBC Test 930 ng/mL (>498); Vitamin B1, Thiamine 122.3 nmol/L (66.5-200.0)
== END 2025-02-04 23:59 | disposition home or self-care (01) ==
LOC: MTLAB 08:57
PROVIDERS: PCP Family Medicine; Referring Provider Psychiatry & Neurology Neurology; Visit Provider Psychiatry & Neurology Neurology
DX: E55.9 Vitamin D deficiency, unspecified (principal); F03.90 Unspecified dementia, unspecified severity, without behavioral disturbance, psychotic disturbance, mood disturbance, and anxiety
CPT/HCPCS: 36415; 80053; 82607; 82652; 82747; 84425; 84443; 85014; 85027

== ENCOUNTER 2025-02-22 09:50 | Outpatient (CLI) | payer MEDICARE, SELFPAY ==
--- OUTSIDE RECORDS SUMMARY | 2025-02-22 09:55 | XMS RPT_ITS | CCD ---
Author Organization [facility] Care Team Providers Care Radiology Administrator Name Role Phone Lora DEVRIES, Dr. Alvarez Primary Care Provider Lora DEVRIES, Dr. Alvarez Referring Provider Karen DEVRIES, Dr. Scott Attending Provider Lora DEVRIES, Dr. Alvarez Attending Provider Lora DEVRIES, Dr. Alvarez Primary Care Provider Lora DEVRIES, Dr. Alvarze Referring Provider Dr. Damien Hampton MD Attending Provider Berta DEVRIES, Dr. Quezada Referring Provider [phone] Miedel, Kim Referring Unavailable Karen, Tyler Consulting Unavailable Miedel, Kim Primary Care Unavailable Miedel, Kim Attending Unavailable Miedel, Kim Primary Care Unavailable Miedel, Kim Attending Unavailable Miedel, Kim Referring Unavailable Edgar Pierce Attending Unavailable Miedel, Kim Primary Care Unavailable Miedel, Kim Referring Unavailable Karen, Tyler Attending Unavailable Miedel, Kim Primary Care Unavailable Lilyedel, Kim Primary Care Unavailable Damien Hampton Attending Unavailable Lilyedel, Kim Referring Unavailable Edgar Pierce Attending Unavailable Miedel, Kim Primary Care Unavailable Miedel, Kim Referring Unavailable Karen, Tyler Attending Unavailable Miedel, Kim Primary Care Unavailable Miedel, Kim Referring Unavailable Miedel, Kim Primary Care Unavailable Damien Hampton Attending Unavailable Damien Hampton Referring Unavailable Kim Schaffer Primary Care Unavailable Damien Hampton Attending Unavailable Damien Hampton Referring Unavailable Allergies Allergy Classification Reported Allergen(s) Allergy Type Date of Onset Reaction(s) Facility (3 sources) Amox[facility] Drug Allergy [facility] (3 sources) Ampicillin Drug Allergy 4 [facility] (3 sources) Sulfonamides (Antibiotic) Propensity to adverse reactions 4 [facility] (1 source) Amoxicillin Drug Allergy 5 [facility] (1 source) Ampicillin Drug Allergy 5 [facility] (1 source) Sulfonamides (Antibiotic) Drug allergy (disorder) 5 [facility] Medications Current Medications Medication Drug Class(es) Dates Sig (Normalized) Sig (Original) [id number] 200 actuat albuterol 0.09 mg/actuat metered dose inhaler (3 sources) beta2-Adrenergic Agonist Start: 07-10-2024 Albuterol Sulfate (Ventolin Hfa) 90 mcg/actuation HFA aerosol inhaler Active 2 NMA INHALATION EVERY 4-6 HOURS as needed July 10, 2024 1:00am aspirin 81 mg chewable tablet (3 sources) Platelet Aggregation Inhibitor, Nonsteroidal Anti-inflammatory Drug Start: 07-10-2024 take 1 tablet by mouth once daily Aspirin 81 mg tablet,chewable Active 81 mg PO daily July 10, 2024 1:00am azelastine hydrochloride 0.137 mg/actuat / fluticasone propionate 0.05 mg/actuat metered dose nasal spray (3 sources) Corticosteroid, Histamine-1 Receptor Antagonist Start: 07-10-2024 Azelastine-Fluticaso ne 137-50 mcg/spray spray,non-aerosol Active 1 NMA INTRANASAL ONCE as needed July 10, 2024 1:00am administer into each nostril cholecalciferol 0.025 mg oral capsule (3 sources) Vitamin D Start: 07-10-2024 take 1 capsule by mouth once daily Cholecalciferol (Vitamin D3) 25 mcg (1,000 unit) capsule Active 25 ug PO daily July 10, 2024 1:00am citalopram 10 mg oral tablet (2 sources) Serotonin Reuptake Inhibitor Start: 06-02-2025 take 1 tablet by mouth once daily Citalopram 10 mg tablet Active 10 mg PO daily February 03, 2025 12:00am donepezil hydrochloride 5 mg oral tablet (2 sources) Start: 02-03-2025 take 1 tablet by mouth once daily at bedtime Donepezil 10 mg tablet Active 10 mg PO AT BEDTIME February 03, 2025 12:00am Begin after completing one month of treatment of donepezil 5mg nightly Start: 02-03-2025 take 1 tablet by mouth at bedt yessica Donepezil 5 mg tablet Active 5 mg PO AT BEDTIME February 03, 2025 12:00am estradiol 0.1 mg/ml vaginal cream (3 sources) Estrogen Start: 08-09-2024 Estradiol 0.01 % (0.1 mg/gram) cream Active VAGINAL August 09, 2024 1:00am loratadine 10 mg oral tablet (3 sources) Start: 07-10-2024 take 1 tablet by mouth once daily Loratadine (Allergy Relief (Loratadine)) 10 mg tablet Active 10 mg PO daily July 10, 2024 1:00am magnesium oxide 400 mg oral tablet (3 sources) Start: 08-09-2024 take 1 tablet by mouth once daily Magnesium Oxide 400 mg magnesium tablet Active 400 mg PO daily August 09, 2024 1:00am omeprazole 20 mg delayed release oral capsule (3 sources) Proton Pump Inhibitor Start: 07-10-2024 take 1 capsule by mouth once daily Omeprazole 20 mg capsule,delayed release(DR/EC) Active 20 mg PO daily July 10, 2024 1:00am simvastatin 40 mg oral tablet (3 sources) HMG-CoA Reductase Inhibitor Start: 07-10-2024 take 1 tablet by mouth at bedtime Simvastatin 40 mg tablet Active 40 mg PO AT BEDTIME July 10, 2024 1:00am Completed/Discontinued Medications Medication Drug Class(es) Dates Sig (Normalized) Sig (Original) Carica Papaya (Papaya Enzyme) tablet (3 sources) Start: 07-10-2024 End: 02-03-2025 take 1 [...] Problem Date Documented Date Episodic/Chronic Cardiac dysrhythmias (3 sources) Supraventricular tachycardia; Translations: [Supraventricular tachycardia] 08-09-2024 Chronic Chronic obstructive pulmonary disease and bronchiectasis (3 sources) Pulmonary emphysema; Translations: [Emphysema, unspecified] 08-09-2024 Chronic Conditions associated with dizziness or vertigo (4 sources) Dizziness; Translations: [Dizziness and giddiness] 08-09-2024 Episodic Delirium, dementia, and amnestic and other cognitive disorders (6 sources) Dementia; Translations: [Unspecified dementia without behavioral disturbance] Onset: 02-03-2025 02-03-2025 Chronic Disorders of lipid metabolism (4 sources) Hyperlipidemia; Translations: [Hyperlipidemia, unspecified] Onset: 08-21-2024 08-09-2024 Chronic Esophageal disorders (3 sources) Gastroesophageal reflux disease; Translations: [Gastro-esophageal reflux disease without esophagitis] 08-09-2024 Chronic Heart valve disorders (4 sources) Aortic valve regurgitation; Translations: [Nonrheumatic aortic (valve) insufficiency] Onset: 08-21-2024 08-09-2024 Chronic Mood disorders (3 sources) Depressive disorder; Translations: [Depression] 08-19-2024 Chronic Comment on above: Pre-existing diagnos is of depression which may be complicating a diagnosis of cognitive impairment. Nutritional deficiencies (5 sources) Vitamin D deficiency; Translations: [Vitamin D deficiency, unspecified] Onset: 02-09-2025 08-09-2024 Chronic Osteoarthritis (3 sources) Arthritis; Translations: [Unspecified osteoarthritis, unspecified site] 08-09-2024 Chronic Other diseases of bladder and urethra (3 sources) Overactive bladder; Translations: [Overactive bladder] 08-09-2024 Chronic Other lower respiratory disease (3 sources) Fibrosis of lung; Translations: [Pulmonary fibrosis, unspecified] 08-09-2024 Chronic Other nervous system disorders (6 sources) Impaired cognition; Translations: [Other symptoms and [...] breast] Onset: 12-01-2024 Episodic Pulmonary heart disease (4 sources) Pulmonary hypertension; Translations: [Pulmonary hypertension, unspecified] Onset: 08-21-2024 08-09-2024 Chronic Residual codes; unclassified (3 sources) Insomnia; Translations: [Insomnia, unspecified] 08-09-2024 Episodic Unclassified (1 source) Supraventricular tachycardia, unspecified; Translations: [Supraventricular tachycardia, unspecified] Onset: 08-21-2024 Results Test Name Value Interpretation Reference Range Facility Folates, RBCon 02-06-2025 Fol.,Hemolysate 371.0 ng/mL Normal Not Estab. [facility] Comment on above: Order Comment: Test( s) [id number]. B1, Whole Blood was developed and its performance characteristics determined by [facility]. It has not been cleared or approved by the Food and Drug Administration. Performed By: #### L 3300.8000, L3300.0960, L500.4050, L3100.1725, L503.0106, L100.0500, L501.9520 #### [facility] [address] [place], [place], [address] Folate, RBC 930 ng/mL Normal >498 [facility] Comment on above: Order Comment: Test( s) [id number]. B1, Whole Blood was developed and its performance characteristics determined by [facility]. It has not been cleared or approved by the Food and Drug Administration. Performed By: #### L 3300.8000, L3300.0960, L500.4050, L3100.1725, L503.0106, L100.0500, L501.9520 #### [facility] [address] [place], [place], [address] Hematocrit (Bld) [Volume fraction] 39.9 % Normal 34.0-46.6 [facility] Comment on above: Order Comment: Test( s) [id number]. B1, Whole Blood was developed and its performance characteristics determined by [facility]. It has not been cleared or approved by the Food and Drug Administration. Performed By: #### L 3300.8000, L3300.0960, L500.4050, L3100.1725, L503.0106, L100.0500, L501.9520 #### [facility] [address] [place], [address] Vitamin B1, Thiamineon 02-06 VIT B1 THIAMINE 122.3 nmol/L Normal 66.5-200.0 [facility] Comment on above: Order Comment: Test( s) [id number]. B1, Whole Bloodwas developed and its performance characteristicsdetermined by [facility]. It has not been cleared or approvedby the Food and Drug Administration. Result Comment: Perf ormed at: [address] [id number] Dater Assembler: Bryan Buck PhD, Phone: [phone] Performed at: [address] [id number] [employer] As[employer]er: Mimi Correa MD, Phone: [phone] Performed By: #### L 3300.8000, L3300.0960, L500.4050, L3100.1725, L503.0106, L100.0500, L501.9520 ####[facility] [address] [place], [place], [id number] Vitamin D 1,25-Dihydroxyon 0 02-06-2025 VIT D 1,25 DIHY 55.5 pg/mL Normal 24.8-81.5 [facility] Comment on above: Result Comment: Perf ormed at: [address] [id number] Dater Assembler: Mimi Correa MD, Phone: [phone] Performed By: #### L 3300.8000, L3300.0960, L500.4050, L3100.1725, L503.0106, L100.0500, L501.9520 #### [facility] [address] [place], [address] Anion gap in Serum or Plasma Ordered By: Damien Hampton on 02-04-2025 Anion gap [Moles/Vol] 10 mmol/L - [facility] BUN/creatinine ratioOrdered By: Damien Hampton on 02-04-2025 Urea nitrogen/Creatinine [Mass ratio] 18.4 mg/mg - [facility] Bilirubin, totalOrdered By: Damien Hampton on 02-04-2025 Bilirubin [Mass/Vol] 0.56 mg/dL 0.00-1.30 [facility] CBC-Complete Blood Cnt No Di ffon 02-04-2025 Erythrocyte distribution width (RBC) [Ratio] 14.0 % Normal 11.6-14.6 [facility] Comment on above: Performed By: #### L 3300.8000, L3300.0960, L500.4050, L3100.1725, L503.0106, L100.0500, L501.9520 #### [facility] [address] [place], [address] Hematocrit (Bld) [Volume fraction] 40.9 % Normal 37-47 [facility] Comment on above: Performed By: #### L 3300.8000, L3300.0960, L500.4050, L3100.1725, L503.0106, L100.0500, L501.9520 #### [facility] [address] [place], [address] Hemoglobin (Bld) [Mass/Vol] 12.6 g/dL Normal 12.0-15.0 [facility] Comment on above: Performed By: #### L 3300.8000, L3300.0960, L500.4050, L3100.1725, L503.0106, L100.0500, L501.9520 #### [facility] [address] [place], [address] MCH (RBC) [Entitic mass] 29.8 pg Normal 27.0-32.0 [facility] Comment on above: Performed By: #### L 3300.8000, L3300.0960, L500.4050, L3100.1725, L503.0106, L100.0500, L501.9520 #### [facility] [address] [place], [address] MCHC (RBC) [Mass/Vol] 30.8 g/dL Low 32-36 [facility] Comment on above: Performed By: #### L 3300.8000, L3300.0960, L500.4050, L3100.1725, L503.0106, L100.0500, L501.9520 #### [facility] [address] [place], [address] MCV (RBC) [Entitic vol] 96.7 fL Normal 81-99 [facility] Comment on above: Performed By: #### L 3300.8000, L3300.0960, L500.4050, L3100.1725, L503.0106, L100.0500, L501.9520 #### [facility] [address] [place], [address] Platelet mean volume (Bld) [Entitic vol] 10.6 fL Normal 6.2-12.0 [facility] Comment on above: Performed By: #### L 3300.8000, L3300.0960, L500.4050, L3100.1725, L503.0106, L100.0500, L501.9520 #### [facility] [address] [place], [address] Platelets (Bld) [#/Vol] 149 10*3/uL Low 150-450 [facility] Comment on above: Performed By: #### L 3300.8000, L3300.0960, L500.4050, L3100.1725, L503.0106, L100.0500, L501.9520 #### [facility] [address] [place], [address] RBC (Bld) [#/Vol] 4.23 10*6/uL Normal 4.2-5.4 [facility] Comment on above: Performed By: #### L 3300.8000, L3300.0960, L500.4050, L3100.1725, L503.0106, L100.0500, L501.9520 #### [facility] [address] [place], [address] RDW SD 49.5 fl High 35.1-43.9 [facility] Comment on above: Performed By: #### L 3300.8000, L3300.0960, L500.4050, L3100.1725, L503.0106, L100.0500, L501.9520 #### [facility] [address] [place], [address] WBC (Bld) [#/Vol] 8.3 10*3/uL Normal 4.4-11.0 [facility] Comment on above: Performed By: #### L 3300.8000, L3300.0960, L500.4050, L3100.1725, L503.0106, L100.0500, L501.9520 #### [facility] [address] [place], [address] Carbon dioxide, total [Moles /volume] in Central venous bloodOrdered By: Damien Hampton on 02-04-2025 CO2 [Moles/Vol] 25.2 mmol/L 21.0-32.0 [facility] Chloride assayOrdered By: Ra juan pablo Hampton on 02-04-2025 Chloride [Moles/Vol] 105 mmol/L 98-108 [facility] Comprehensive Metabolic Prof ilon 02-04-2025 Albumin [Mass/Vol] 4.3 g/dL Normal 3.4-4.8 [facility] Comment on above: Performed By: #### L 3300.8000, L3300.0960, L500.4050, L3100.1725, L503.0106, L100.0500, L501.9520 #### [facility] [address] [place], [address] Albumin/Globulin [Mass ratio] 1.4 {ratio} Normal 0.9-2.4 [facility] Comment on above: Performed By: #### L 3300.8000, L3300.0960, L500.4050, L3100.1725, L503.0106, L100.0500, L501.9520 #### [facility] [address] [place], [address] ALK PHOS 61 U/L Normal 35-104 [facility] Comment on above: Performed By: #### L 3300.8000, L3300.0960, L500.4050, L3100.1725, L503.0106, L100.0500, L501.9520 #### [facility] [address] [place], [address] ALT [Catalytic activity/Vol] 11 U/L Normal <=34 [facility] Comment on above: Performed By: #### L 3300.8000, L3300.0960, L500.4050, L3100.1725, L503.0106, L100.0500, L501.9520 #### [facility] [address] [place], [address] AST [Catalytic activity/Vol] 17 U/L Normal <=31 [facility] Comment on above: Performed By: #### L 3300.8000, L3300.0960, L500.4050, L3100.1725, L503.0106, L100.0500, L501.9520 #### [facility] [address] [place], [address] Bilirubin [Mass/Vol] 0.56 mg/dL Normal 0.00-1.30 [facility] Comment on above: Performed By: #### L 3300.8000, L3300.0960, L500.4050, L3100.1725, L503.0106, L100.0500, L501.9520 #### [facility] [address] [place], [address] BUN/CRE 18.4 RATIO Normal 10-20 [facility] Comment on above: Performed By: #### L 3300.8000, L3300.0960, L500.4050, L3100.1725, L503.0106, L100.0500, L501.9520 #### [facility] [address] [place], [address] Calcium [Mass/Vol] 9.6 mg/dL Normal 7.6-11.0 [facility] Comment on above: Performed By: #### L 3300.8000, L3300.0960, L500.4050, L3100.1725, L503.0106, L100.0500, L501.9520 #### [facility] [address] [place], [address] Chloride [Moles/Vol] 105 mmol/L Normal 98-108 [facility] Comment on above: Performed By: #### L 3300.8000, L3300.0960, L500.4050, L3100.1725, L503.0106, L100.0500, L501.9520 #### [facility] [address] [place], [address] CO2 [Moles/Vol] 25.2 mmol/L Normal 21.0-32.0 [facility] Comment on above: Performed By: #### L 3300.8000, L3300.0960, L500.4050, L3100.1725, L503.0106, L100.0500, L501.9520 #### [facility] [address] [place], [address] Creatinine [Mass/Vol] 0.80 mg/dL Normal 0.70-1.20 [facility] Comment on above: Performed By: #### L 3300.8000, L3300.0960, L500.4050, L3100.1725, L503.0106, L100.0500, L501.9520 #### [facility] [address] [place], [address] GAP 10 Normal 5-15 [facility] Comment on above: Performed By: #### L 3300.8000, L3300.0960, L500.4050, L3100.1725, L503.0106, L100.0500, L501.9520 #### [facility] [address] [place], [place], [id number] [phone] GFR/1.73 sq M.predicted among non-blacks MDRD (S/P/Bld) [Vol rate/Area] 71 mL/min/{1.73_m2} Normal >60 [facility] Comment on above: Result Comment: mL/m in/1.73m2 CKD-EPI Creatinine Equation (2020) Performed By: #### L 3300.8000, L3300.0960, L500.4050, L3100.1725, L503.0106, L100.0500, L501.9520 #### [facility] [address] [place], [address] Globulin (S) [Mass/Vol] 3.0 g/dL Normal 2.2-4.2 [facility] Comment on above: Performed By: #### L 3300.8000, L3300.0960, L500.4050, L3100.1725, L503.0106, L100.0500, L501.9520 #### [facility] [address] [place], [address] Glucose [Mass/Vol] 96 mg/dL Normal 70-99 [facility] Comment on above: Performed By: #### L 3300.8000, L3300.0960, L500.4050, L3100.1725, L503.0106, L100.0500, L501.9520 #### [facility] [address] [place], [address] Potassium [Moles/Vol] 4.8 mmol/L Normal 3.3-5.1 [facility] Comment on above: Performed By: #### L 3300.8000, L3300.0960, L500.4050, L3100.1725, L503.0106, L100.0500, L501.9520 #### [facility] [address] [place], [address] Sodium [Moles/Vol] 140 mmol/L Normal 133-145 [facility] Comment on above: Performed By: #### L 3300.8000, L3300.0960, L500.4050, L3100.1725, L503.0106, L100.0500, L501.9520 #### [facility] [address] [place], [address] T PROT 7.3 g/dL Normal 5.9-8.4 [facility] Comment on above: Performed By: #### L 3300.8000, L3300.0960, L500.4050, L3100.1725, L503.0106, L100.0500, L501.9520 #### [facility] [address] [place], [address] Urea nitrogen [Mass/Vol] 15 mg/dL Normal 4-19 [facility] Comment on above: Performed By: #### L 3300.8000, L3300.0960, L500.4050, L3100.1725, L503.0106, L100.0500, L501.9520 #### [facility] [address] [place], [address] Erythrocyte distribution wid th ratioOrdered By: Damien Hampton on 02-04-2025 Erythrocyte distribution width (RBC) [Ratio] 14.0 % 11.6-14.6 [facility] Erythrocyte distribution wid th standard deviationOrdered By: Damien Hampton on 02-04-2025 Erythrocyte distribution width (RBC) [Ratio] 49.5 fl High 35.1-43.9 [facility] Erythrocyte folate measureme nt with hematocritOrdered By: Damien Hampton on 02-04-2025 Hematocrit (Bld) [Volume fraction] 39.9 % 34.0-46.6 [facility] Glomerular filtration rate ( GFR) estimation/1.73 sq m using serum, plasma, or whole bOrdered By: Damien Hampton on 02-04-2025 GFR/1.73 sq M.predicted among non-blacks MDRD (S/P/Bld) [Vol rate/Area] 71 mL/min/{1.73_m2} >60 [facility] Comment on above: mL/min/1.73m2 CKD-EP I Creatinine Equation (2020) Hematocrit Auto (Bld) [Volum e fraction]Ordered By: Damien Hampton on 02-04-2025 Hematocrit (Bld) [Volume fraction] 40.9 % 37-47 [facility] Hemoglobin measurementOrdere d By: Damien Hampton on 02-04-2025 Hemoglobin (Bld) [Mass/Vol] 12.6 g/dL 12.0-15.0 [facility] - Chemistry and C hemistry - challengeOrdered By: Damien Hampton 02-04-2025 AST [Catalytic activity/Vol] 17 U/L <32 [facility] MCV (mean corpuscular volume ) determinationOrdered By: Damien Hampton on 02-04-2025 MCV (RBC) [Entitic vol] 96.7 fL 81-99 [facility] Mean corpuscular hemoglobin (MCH) determinationOrdered By: Damiengiorgi Hampton 02-04-2025 MCH (RBC) [Entitic mass] 29.8 pg 27.0-32.0 [facility] Mean corpuscular hemoglobin concentration (MCHC) determinationOrdered By: Damien Hampton on 02-04-2025 MCHC (RBC) [Mass/Vol] 30.8 g/dL Low 32-36 [facility] Mean platelet volume determi nationOrdered By: Damien Hampton on 02-04-2025 Platelet mean volume (Bld) [Entitic vol] 10.6 fL 6.2-12.0 [facility] Platelet countOrdered By: Ra juan pablo Hampton on 02-04-2025 Platelets (Bld) [#/Vol] 149 10*3/uL Low 150-450 [facility] Potassium measurement (mass/ volume)Ordered By: Damien Hampton on 02-04-2025 Potassium (Unsp spec) [Mass/Vol] 4.8 mmol/L 3.3-5.1 [facility] RBC Auto (Bld) [#/Vol]Ordere d By: Damien Hampton on 02-04-2025 RBC (Bld) [#/Vol] 4.23 10*6/uL 4.2-5.4 [facility] Serum creatinine measurement (mass/volume)Ordered By: Damien Hampton on 02-04-2025 Creatinine [Mass/Vol] 0.80 mg/dL 0.70-1.20 [facility] Serum globulin measurementOr dered By: Damien Hampton 02-04-2025 Globulin (S) [Mass/Vol] 3.0 g/dL 2.2-4.2 [facility] Serum glucose measurement (m ass/volume)Ordered By: Damien Hampton on 02-04-2025 Glucose [Mass/Vol] 96 mg/dL 70-99 [facility] Serum or plasma alanine tobin otransferase (ALT) measurementOrdered By: Damien Hampton 02-04-2025 ALT [Catalytic activity/Vol] 11 U/L <35 [facility] Serum or plasma albumin ramya urement (mass/volume)Ordered By: Damien Hampton 02-04-2025 Albumin [Mass/Vol] 4.3 g/dL 3.4-4.8 [facility] Serum or plasma albumin/glob ulin mass ratioOrdered By: Damien Hampton on 02-04-2025 Albumin/Globulin [Mass ratio] 1.4 {ratio} 0.9-2.4 [facility] Serum or plasma alkaline adrian sphatase measurementOrdered By: Damien Hampton on 02-04-2025 ALP [Catalytic activity/Vol] 61 U/L 35-104 [facility] Serum or plasma calcitriol m easurement (mass/volume)Ordered By: Damien Hampton on 02-04-2025 1,25-dihydroxyvitamin D3 [Mass/Vol] 55.5 pg/mL 24.8-81.5 [facility] Comment on above: Performed at: [email or web address] [address] [id number] Director: Mimi Correa MD, Phone: [phone] Serum or plasma calcium ramya urement (mass/volume)Ordered By: Damien Hampton on 02-04-2025 Calcium [Mass/Vol] 9.6 mg/dL 7.6-11.0 [facility] Serum or plasma thiamine sharon surement (mass/volume)Ordered By: Damien Hampton on 02-04-2025 Thiamine [Mass/Vol] 122.3 nmol/L 66.5-200.0 [facility] Comment on above: Performed at: [facility] [address] [id number] Director: Bryan Buck PhD, Phone: [phone] at: [facility] [id number] Director: Mimi Correa MD, Phone: [phone] Serum or plasma urea nitroge n measurement (mass/volume)Ordered By: Damien Hampton on 02-04-2025 Urea nitrogen [Mass/Vol] 15 mg/dL 4-19 [facility] Sodium levelOrdered By: Johnna Hampton on 02-04-2025 Sodium [Moles/Vol] 140 mmol/L 133-145 [facility] TSH DL <= 0.005 mIU/L QnOrde red By: Damien Hampton on 02-04-2025 TSH Qn 3.470 uIU/mL 0.300-4.200 [facility] Thyroid Stim Hormone (TSH)on 02-04-2025 TSH 3.470 uIU/mL Normal 0.300-4.200 [facility] Comment on above: Performed By: #### L 3300.8000, L3300.0960, L500.4050, L3100.1725, L503.0106, L100.0500, L501.9520 #### [facility] [address] [place], [place], [id number] Total proteinOrdered By: Hang Hampton on 02-04-2025 Protein [Mass/Vol] 7.3 g/dL 5.9-8.4 [facility] Vitamin B12on 02-04-2025 Cobalamin (Vitamin B12) [Mass/Vol] 380 pg/mL Normal 180-914 [facility] Comment on above: Performed By: #### L 3300.8000, L3300.0960, L500.4050, L3100.1725, L503.0106, L100.0500, L501.9520 #### [facility] [address] [place], [place], [id number] Vitamin B12 ser/plasOrdered By: Damien Hampton on 02-04-2025 Cobalamin (Vitamin B12) [Mass/Vol] 380 pg/mL 180-914 [facility] White blood cell (WBC) count Ordered By: Damien Hampton on 02-04-2025 WBC (Bld) [#/Vol] 8.3 10*3/uL 4.4-11.0 [facility] Neurology Visit Reporton Neurology Visit Report [facility] [address], [address] [place], [place] [address] OFFICE VISIT Date of Service: 02/03/25 MR#: [id number] Acct: [id number] Name: SHYLA KENYON Rep #: [id number] : 1935 Provider: Dr. Damien aceves MD Age/Sex: 89/F Location: [facility] Status: Signed HPI HPI Details: History: The [...] members. She lives with her son and [id number]. She remains independent in basic activities of [...] had undergone neuropsychological testing on 06/27/2023 in [place] and a report seen on a cell [...] - Unspecif (more content not included)... Normal [facility] Breast imaging reportOrdered By: Dahiana Serrano on 11-28-2024 Study report [facility] Imaging Services [address] [place] [address] SCRN MAMM (CAD)W/SUKHDEPE BILAT MR#: [id number] Acct: [id number] Name: SHYLA KENYON Rep #: [id number] : 1935 F 89 From: Mario Serrano DO PCP: Dr. Kim Schaffer MD Status: REG CLI Study:SCRN MAMM (CAD)W/SUKHDEEP BILAT Date of Exa m: 11/27/24 Exam# [id number] Ordering Dr: Thomas Schaffer MD EXAM: SCRN [...] be mailed to the patient. Reading Location: [facility] CC: Dr. Kim Schaffer MD ~ Associate Engineer: Signed [facility] SCRN MAMM (CAD)W/SUKHDEEP BILATo n 11-27-2024 SCRN MAMM (CAD)W/SUKHDEEP BILAT [facility] Imaging Services [address] [place], [place] [address] SCRN MAMM (CAD)W/SUKHDEEP BILAT MR#: [id number] Acct: [id number] Name: SHYLA KENYON Rep #: [id number] : 1935 F 89 From: Dahiana Cummings PCP: Dr. Kim Schaffer MD Status: REG CLI Study: SCRN MAMM (CAD)W/SUKHDEEP BILAT Date of Exam: 11/03 02/26 Exam# [id number] Ordering Dr: Kim Schaffer MD EXAM: SCRN [...] be mailed to the patient. Reading Location: [id number] CC: Dr. Kim Schaffer MD Associate Engineer: Signed [facility] 12 Lead EKG performed by [facility] on 08-21-2024 12 Lead EKG performed by [facility] [address] [place] [address] 12 Lead EKG performed by [facility] 08/21/24906 MR#: [id number] Acct: [id number] Name: SHYLA KENYON Rep #: [id number] : 1935 89 From: Tyler Jones MD Attending Dr: Dr. Tyler Jones MD Status: DEP A MB Ordering Dr: Tyler Jones MD Date: 08/21/24 Location: [facility] Sex: F C Admitted: BMS/12 Lead EKG performed by [facility] ECG Report Interpretation S inus Rhythm -Left axis -anterior fascicular block. Voltage criteria for LVH (R(aVL) exceeds 1.01 mV) -Voltage criteria w/o ST/T abnormality may be normal. -Old anterior infarct. ABNORMAL Electronically signed on 08/29/2024 at 09:48 by Tyler Jones [employer] Version 8610 08/29/2451 Date Tyler Jones MD CC: Dr. Kim Schaffer MD Date Dictated: 08/21/24906 Date Transcribed: 08/21/24906 Associate Engineer: [place] Signed Normal [facility] Cardiology Visit Reporton Cardiology Visit Report [facility] [address] [place] [address] OFFICE VISIT Date of Service: 08/21/24 MR#: [id number] Acct: [id number] Name: SHYLA KENYON Rep #: [id number] : 1935 Provider: Dr. Tyler Jones MD Age/Sex: 89/F Location: [facility] Status: Signed HPI HPI History of Present Illness Details: Pleasant 89-year-old lady who is here for establishment of cardiac care. She recently moved here from [place] and is accompanied by her daughter. She has had some intermittent dizziness which she says started after COVID over 2 years ago. She thinks that she was put on midodrine while she was in [place] but she has actually discontinued this. 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 Normal [facility] Echo Completeon 07-10-2024 Echo Complete [facility] [address] [place] [address] Echo Complete 07/10/24 0904 MR#: [id number] Acct: [id number] Name: SHYLA KENYON Rep #: [id number] : 1935 89 From: Tyler Jones MD Attending Dr: Dr. Kim Schaffer MD Status: REG I Ordering Dr: Kim Schaffer MD Date: 07/10/24 Location: [facility] Sex: F C Admitted: Reason For [...] Referring Physician: Kim Schaffer Performed By: Hilary Lewis RDCS 07/10/24 1221 Date Tyler Jones MD CC: Dr. Kim Schaffer MD Date Dictated: 07/10/24 0904 Date Transcribed: 07/10/24 1221 Associate Engineer: Signed Normal [facility] Neurology Visit Reporton Neurology Visit Report [facility] [address], [address] [place] [address] OFFICE VISIT Date of Service: 07/10/24 MR#: [id number] Acct: [id number] Name: SHYLA KENYON Rep #: [id number] : 1935 Provider: Dr. Edgar ramirez MD Age/Sex: 89/F Location: [facility] Status: Signed with Addenda ADDENDUM by Dr. [...] Date Edgar Pierce MD cc: * Signed [facility] HPI Chief Complaint: Est Care Details: The patient is 89 years old right handed [facility]. [facility] by [facility] by PA. Nicole for mild cognitive impairment. This patient is accompanied by her daughter. Patient seen by me and nurse practitioner Criss. Patient had been living in [place] for a period of time. Her had her at 1 point. Patient was then living with a boyfriend in [place] in a condo who within the past year. Patient seems to have had some difficulty with cognitive performance. 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 Psychiatric patient seems to deny depression but [...] sore throat (more content not included)... Normal [facility] Vital Signs Date Time Vital Sign Value Performing Clinician Faci lity 02-03-2025 13:58-0400 Body height 157.[address] Kim Schaffer MD Work Phone: [facility] 02-03-2025 13:58-0400 Body mass index (BMI) [Ratio] 24.8 kg/m2 Dr. Kim Schaffer MD Work Phone: [facility] 02-03-2025 13:58-0400 Body temperature 98.4 [degF] Dr. Kim Schaffer MD Work Phone: [facility] 02-03-2025 13:58-0400 Body weight 61.[address] Kim Schaffer MD Work Phone: [facility] 02-03-2025 13:58-0400 Diastolic blood pressure 67 mm[Hg] Dr. Kim Schaffer MD Work Phone: [facility] 02-03-2025 13:58-0400 Heart rate 50 /min Dr. Kim Schaffer MD Work Phone: [facility] 02-03-2025 13:58-0400 Respiratory rate 17 /min Dr. Kim Schaffer MD Work Phone: [facility] 02-03-2025 13:58-0400 SaO2% (BldA) [Mass fraction] 96 % Dr. Kim Schaffer MD Work Phone: [facility] 02-03-2025 13:58-0400 Systolic blood pressure 119 mm[Hg] Dr. Kim Schaffer MD Work Phone: [facility] 08-21-2024 09:06-0500 Body height 157.[address] Kim Schaffer MD Work Phone: [facility] 08-21-2024 09:06-0500 Body mass index (BMI) [Ratio] 25.4 kg/m2 Dr. Kim Schaffer MD Work Phone: [facility] 08-21-2024 09:06-0500 Body weight 63.[address] Kim Schaffer MD Work Phone: [facility] 08-21-2024 09:06-0500 Diastolic blood pressure 68 mm[Hg] Dr. Kim Schaffer MD Work Phone: [facility] 08-21-2024 09:06-0500 Heart rate 92 /min Dr. Kim Schaffer MD Work Phone: [facility] 08-21-2024 09:06-0500 Respiratory rate 16 /min Dr. Kim Schaffer MD Work Phone: [facility] 08-21-2024 09:06-0500 Systolic blood pressure 106 mm[Hg] Dr. Kim Schaffer MD Work Phone: [facility] Encounters Encounter Date Encounter Type Care Provider Facility Start: 02-22-2025 ambulatory Kim Schaffer Facility: [facility] Start: 02-04-2025 End: 02-04-[address] Damien Hampton MD [facility] Work Phone: Start: 02-04-2025 End: 02-04-[address] Kim Schaffer MD Work Phone: [facility] Work Phone: Start: 02-03-2025 End: 02-03-[address] Damien Hampton MD -[facility] Work Phone: Start: 02-03-2025 End: 02-03-[address] Kim Schaffer MD Work Phone: [facility] Work Phone: Start: 01-14-2025 ambulatory Edgar Pierce Facilit y:[facility] Start: 11-27-2024 End: 11-27-[address] iKm Schaffer MD Work Phone: [facility] Work Phone: Start: 11-27-2024 End: 11-27-[address] Kim Schaffer MD -[facility] Work Phone: Start: 11-27-2024 End: 11-27-2024 ambulatory Kim Schaffer Facility:[facility] Start: 08-21-2024 End: 08-21-[address] Tyler Jones MD -[facility] Work Phone: Start: 08-21-2024 End: 08-21-2024 ambulatory Tyler Jones Facility:[facility] Start: 07-10-2024 End: 07-10-2024 ambulatory Edgar Pierce Facility:[facility] Start: 07-10-2024 ambulatory Tyler Jones Facility:[facility] Start: 07-10-2024 End: 07-10-2024 ambulatory Kim Orvidhya Facility:[facility] Procedures Date Procedure Procedure Detail Performing Clinician Start: 02-04-2025 Folic acid measureme nt, RBC Dr. Kim Schaffer MD Work Phone: Start: 11-27-2024 Screening mammography Luis Enrique Schaffer MD Work Phone: Start: 08-21-2024 Evaluation of diagno stic study results Dr. Kim Schaffer MD Work Phone: Plan of Treatment Date Care Activity Detail Author MR Brain WO contrast [facility] Vitamin B6 measurement [facility] [place] Date Payer Category Payer Self-pay 2024 Private Health Insurance [id number] Medicare MEDICARE PART A B [id number] Unknown [id number] Unknown [id number] Unknown [id number] Unknown [id number] Unknown [id number] Unknown [id number] Unknown [id number] Unknown [id number] Unknown [id number] Social History Date Type Detail Facility Start: 07-10-2024 Tobacco smoking stat [facility] Never smoked tobacco (finding) [facility] Start: 12-01-2024 Sex Female (finding) [facility] Start: 1935 Sex Assigned At Female [facility] Evaluation note 02-03-2025 Note Date & Type Note Facility 02-03-2025 Evaluation note Diagnosis Onset Date Resolution Dementia acute February 03, 2025 1:55pm Vitamin D deficiency acute February 03, 2025 1:55pm [facility] Work Phone: Evaluation note 08-21-2024 Note Date & Type Note Facility 08-21-2024 Evaluation note Diagnosis Onset Date Resolution Dizziness acute August 21, 2024 9:05am [facility] Work Phone: Evaluation note Note Date & Type Note Facility Evaluation note Diagnosis Onset Date Resolution Dementia acute February 03, 2025 1:55pm [facility] Work Phone: Reason for referral (narrative) Note Date & Type Note Facility Reason for referral (narrative) No reason for referral information available [facility] Work Phone: Chief Complaint and Reason for Visit Chief Complaint Admit Date ESTABLISH ([facility]) August 21, 2024 9:05am SCREENING November 27, 2024 8:0 3am Reason for Visit Admit Date Dizziness August 21, 2024 9:05am Chief Complaint Admit Date SCREENING November 27, 2024 8:0 3am EST CARE-6 M FU February 03, 2025 1:55p m Reason for Visit Admit Date Dementia February 03, 2025 1:55p m Chief Complaint Admit Date SCREENING November 27, 2024 8:0 3am EST CARE-6 M FU February 03, 2025 1:55p m EORDERS February 04, 2025 8:56a m Reason for Visit Admit Date Dementia February 03, 2025 1:55p m Vitamin D deficiency February 03, 2025 1:55 pm Family History No Family History Records Found [...] February 03, 2025 End: February 03, 2025 Team Status: Inactive Member Role Status Dates Dr. Kim Schaffer MD Primary Care Provider Active Start: February 04, 2025 End: February 04, 2025 Dr. Damien Hampton MD Attending Provider Active Start: February 04, 2025 End: February 04, 2025 Dr. Damien Hampton MD Referring Provider Active Start: February 04, 2025 End: February 04, 2025 Goals (unrecognized section and content) Goals may be documented in a n alternate sectionGoals may be documented in an alternate sectionGoals may be documented in an alternate section INFORMATION SOURCE (unrecogn ized section and content) DATE CREATED AUTHOR 02/22/2025 [facility] FOR RECORDS PERTAINING TO PATIENTS WHO [...] BE BASED ON THE PRIMARY CLINICAL RECORDS. [employer] provides no warranty or guarantee of the accuracy or completeness of information in this document.
--- NOTE | 2025-02-22 10:15 | MRI_ITS ---
PROCEDURE: BRAIN WITHOUT CONTRAST 02/22/2025 REASON FOR EXAM: DEMENTIA TECHNIQUE: BRAIN WITHOUT CONTRAST Multiplanar and multisequence images were obtained. COMPARISON: none FINDINGS: No acute or hyperacute infarcts. No intracerebral or extra-axial hematomas. Bilateral cerebral periventricular and subcortical foci of high T2/FLAIR WI signal. Normal MRI signal of the cerebellar hemispheres and brain stem. Dilated ventricular system, cortical sulci and extra-axial CSF spaces. No shift of midline structures. Normal MRI appearance of the petrous temporal bones cerebellopontine angles with no definite masses. Normal MRI appearance of orbital structures, both globes, optic nerves, optic chiasm, optic tracts and optic radiations. Scanned paranasal sinuses are unremarkable. MRI/Brain without Contrast IMPRESSION: No acute infarcts. No intracerebral or extra-axial hematomas. Bilateral cerebral microvascular ischemic changes. Age appropriate brain involutional changes. Reading Location[facility]
== END 2025-02-22 23:59 | disposition home or self-care (01) ==
LOC: MRI 09:52
PROVIDERS: PCP Family Medicine; Referring Provider Psychiatry & Neurology Neurology; Visit Provider Psychiatry & Neurology Neurology
DX: I67.82 Cerebral ischemia (principal); F03.90 Unspecified dementia, unspecified severity, without behavioral disturbance, psychotic disturbance, mood disturbance, and anxiety
CPT/HCPCS: 70551

== ENCOUNTER → 2025-04-22 | Outpatient (CLI) | payer MEDICARE, SELFPAY ==
--- OUTSIDE RECORDS SUMMARY | 2025-04-22 22:34 | XMS RPT_ITS | CCD ---
Author Organization [facility]ini[facility] Care Team Providers Care Instructional Media Services Technician Name Role Phone Lora DEVRIES, Dr. Alvarez Primary Care Provider Lora DEVRIES, Dr. Alvarez Referring Provider Karen DEVRIES, Dr. Scott Attending Provider [phone] Lora DEVRIES, Dr. Alvarez Attending Provider Lora DEVRIES, Dr. Alvarez Primary Care Provider [phone] Lora DEVRIES, Dr. Alvarez Referring Provider Dr. Damien Hampton MD Attending Provider Berta DEVRIES, Dr. Quezada Referring Provider [phone] Lora DEVRIES, Dr. Alvarez Primary Care Provider Lora DEVRIES, Dr. Alvarez Referring Provider Damien Hampton Attending Unavailable Miedel, Kim Referring Unavailable Miedel, Kim Primary Care Unavailable Edgar Pierce Attending Unavailable Miedel, Kim Primary Care Unavailable Miedel, Kim Referring Unavailable Karen, [place] Attending Unavailable Miedel, Kim Primary Care Unavailable Miedel, Kim Primary Care Unavailable Edgar Pierce Attending Unavailable Miedel, Kim Referring Unavailable Karen, [place] Attending Unavailable Miedel, Kim Primary Care Unavailable Miedel, Kim Referring Unavailable Miedel, Kim Primary Care Unavailable Damien Hampton Attending Unavailable Miedel, Kim Referring Unavailable Karen, Tyler Consulting Unavailable Miedel, Kim Primary Care Unavailable Miedel, Kim Attending Unavailable Lora Kim Referring Unavailable Lilyvidhya Kim Primary Care Unavailable Lora Kim Attending Unavailable Lora Kim Referring Unavailable Lora Kim Primary Care Unavailable Damien Hampton Attending Unavailable Damien Hampton Referring Unavailable Damien Hampton Attending Unavailable Damien Hampton Referring Unavailable Lora, Kim Primary Care Unavailable Allergies Allergy Classification Reported Allergen(s) Allergy Type Date of Onset Reaction(s) Facility (5 sources) Amoxicillin Drug Allergy 4 [facility] (5 sources) Ampicillin Drug Allergy 4 [facility] (5 sources) Sulfonamides (Antibiotic) Propensity to adverse reactions 4 [facility] (1 source) Amoxicillin Drug Allergy 5 [facility] (1 source) Ampicillin Drug Allergy 5 [facility] (1 source) Sulfonamides (Antibiotic) Drug allergy (disorder) 5 [facility] Medications Current Medications Medication Drug Class(es) Dates Sig (Normalized) Sig (Original) [id number] 200 actuat albuterol 0.09 mg/actuat metered dose inhaler (5 sources) beta2-Adrenergic Agonist Start: 07-10-2024 Albuterol Sulfate (Ventolin Hfa) 90 mcg/actuation HFA aerosol inhaler Active 2 NMA INHALATION EVERY 4-6 HOURS as needed July 10, 2024 1:00am aspirin 81 mg chewable tablet (5 sources) Platelet Aggregation Inhibitor, Nonsteroidal Anti-inflammatory Drug Start: 07-10-2024 take 1 tablet by mouth once daily Aspirin 81 mg tablet,chewable Active 81 mg PO daily July 10, 2024 1:00am azelastine hydrochloride 0.137 mg/actuat / fluticasone propionate 0.05 mg/actuat metered dose nasal spray (5 sources) Corticosteroid, Histamine-1 Receptor Antagonist Start: 07-10-2024 Azelastine-Fluticaso ne 137-50 mcg/spray spray,non-aerosol Active 1 NMA INTRANASAL ONCE as needed July 10, 2024 1:00am administer into each nostril cholecalciferol 0.025 mg oral capsule (5 sources) Vitamin D Start: 07-10-2024 take 1 capsule by mouth once daily Cholecalciferol (Vitamin D3) 25 mcg (1,000 unit) capsule Active 25 ug PO daily July 10, 2024 1:00am citalopram 10 mg oral tablet (4 sources) Serotonin Reuptake Inhibitor Start: 02-03-2025 take 1 tablet by mouth once daily Citalopram 10 mg tablet Active 10 mg PO daily February 03, 2025 12:00am donepezil hydrochloride 10 mg oral tablet (7 sources) Start: 02-03-2025 End: 04-17-2025 take 1 tablet by mouth once daily in the morning Donepezil 10 mg tablet Active 10 mg PO EVERY MORNING 30 5 April 17, 2025 8:29am Start: 02-03-2025 End: 04-17-2025 take 1 tablet by mouth at bedtime Donepezil 5 mg tablet Discontinued 5 mg PO AT BEDTIME 30 0 February 03, 2025 12:00am April 17, 2025 8:29am estradiol 0.1 mg/ml vaginal cream (5 sources) Estrogen Start: 08-09-2024 Estradiol 0.01 % (0.1 mg/gram) cream Active VAGINAL August 09, 2024 1:00am loratadine 10 mg oral tablet (5 sources) Start: 07-10-2024 take 1 tablet by mouth once daily Loratadine (Allergy Relief (Loratadine)) 10 mg tablet Active 10 mg PO daily July 10, 2024 1:00am magnesium oxide 400 mg oral tablet (5 sources) Start: 08-09-2024 take 1 tablet by mouth once daily Magnesium Oxide 400 mg magnesium tablet Active 400 mg PO daily August 09, 2024 1:00am 24 hr memantine hydrochloride 7 mg extended release oral capsule (4 sources) P-wkklid-L-aspart ate Receptor Antagonist Start: 04-17-2025 take 1 capsule by mouth once daily in the morning Memantine 14 mg capsule,sprinkle, ER 24hr Active 14 mg PO EVERY MORNING April 17, 2025 12:00am Week #2 Start: 04-17-2025 take 1 capsule by [facility] once daily in the morning Memantine 21 mg capsule,sprinkle,ER 24hr Active 21 mg PO EVERY MORNING April 17, 2025 12:00am Week #3 Start: 04-17-2025 take 1 capsule by mo uth once daily in the morning Memantine 28 mg capsule,sprinkle,ER 24hr Active 28 mg PO EVERY MORNING 30 6 April 17, 2025 12:00am Week #4 and thereafter Start: 04-17-2025 take 1 capsule by mo uth once daily in the morning Memantine 7 mg capsule,sprinkle,ER 24hr Active 7 mg PO EVERY MORNING 7 0 April 17, 2025 12:00am Week #1 omeprazole 20 mg delayed release oral capsule (5 sources) Proton Pump Inhibitor Start: 07-10-2024 take 1 capsule by mouth once daily Omeprazole 20 mg capsule,delayed release(DR/EC) Active 20 mg PO daily July 10, 2024 1:00am simvastatin 40 mg oral tablet (5 sources) HMG-CoA Reductase Inhibitor Start: 07-10-2024 take 1 tablet by mouth at bedtime Simvastatin 40 mg tablet Active 40 mg PO AT BEDTIME July 10, 2024 1:00am Completed/Discontinued Medications Medication Drug Class(es) Dates Sig (Normalized) Sig (Original) Carica Papaya (Papaya Enzyme) tablet (5 sources) Start: 07-10-2024 End: 02-03-2025 take 1 tablet by mouth once daily at mealtime Carica Papaya (Papaya Enzyme) tablet Discontinued 1 {tbl} PO DAILY July 10, 2024 1:00am February 03, 2025 2:07pm administer with meals Start: 07-10-2024 take 1 tablet by shanika once daily at mealtime Carica Papaya (Papaya Enzyme) tablet Active 1 {tbl} PO DAILY July 10, 2024 1:00am administer with meals Problems Active Problems Problem Classification Problem Date Documented Date Episodic/Chronic Cardiac dysrhythmias (5 sources) Supraventricular tachycardia; Translations: [Supraventricular tachycardia] 08-09-2024 Chronic Chronic obstructive pulmonary disease and bronchiectasis (5 sources) Pulmonary emphysema; Translations: [Emphysema, unspecified] 08-09-2024 Chronic Conditions associated with dizziness or vertigo (6 sources) Dizziness; Translations: [Dizziness and giddiness] 08-09-2024 Episodic Delirium, dementia, and amnestic and other cognitive disorders (10 sources) Dementia; Translations: [Unspecified dementia without behavioral disturbance] Onset: 04-17-2025 02-03-2025 Chronic Disorders of lipid metabolism (6 sources) Hyperlipidemia; Translations: [Hyperlipidemia, unspecified] Onset: 08-21-2024 08-09-2024 Chronic Esophageal disorders (5 sources) Gastroesophageal reflux disease; Translations: [Gastro-esophageal reflux disease without esophagitis] 08-09-2024 Chronic Heart valve disorders (6 sources) Aortic valve regurgitation; Translations: [Nonrheumatic aortic (valve) insufficiency] Onset: 08-21-2024 08-09-2024 Chronic Malaise and fatigue (3 sources) Fatigue; Translations: [Other fatigue] Onset: 04-17-2025 04-17-2025 Episodic Mood disorders (5 sources) Depressive disorder; Translations: [Depression] 08-19-2024 Chronic Comment on above: Pre-existing diagnos is of depression which may be complicating a diagnosis of cognitive impairment. Nutritional deficiencies (10 sources) Vitamin D deficiency; Translations: [Vitamin D deficiency, unspecified] Onset: 04-17-2025 08-09-2024 Chronic Osteoarthritis (5 sources) Arthritis; Translations: [Unspecified osteoarthritis, unspecified site] 08-09-2024 Chronic Other and ill-defined cerebrovascular disease (1 source) Cerebral ischemia; Translations: [Cerebral ischemia] Onset: 04-08-2025 Chronic Other diseases of bladder and urethra (5 sources) Overactive bladder; Translations: [Overactive bladder] 08-09-2024 Chronic Other lower respiratory disease (5 sources) Fibrosis of lung; Translations: [Pulmonary fibrosis, unspecified] 08-09-2024 Chronic Other nervous system disorders (10 sources) Impaired cognition; Translations: [Other symptoms and [...] for better characterization of the symptom complex. Pulmonary heart disease (6 sources) Pulmonary hypertension; Translations: [Pulmonary hypertension, unspecified] Onset: 08-21-2024 08-09-2024 Chronic Residual codes; unclassified (5 sources) Insomnia; Translations: [Insomnia, unspecified] 08-09-2024 Episodic Unclassified (1 source) Supraventricular tachycardia, unspecified; Translations: [Supraventricular tachycardia, unspecified] Onset: 08-21-2024 Past or Other Problems Problem Classification Problem Date Documented Da te Episodic/Chronic Other screening for suspected conditions (not mental disorders or infectious disease) (1 source) Encounter for screening mammogram for malignant neoplasm of breast; Translations: [Encounter for screening mammogram for malignant neoplasm of breast] Onset: 12-01-2024 Episodic Results Test Name Value Interpretation Reference Range Facility Neurology Visit Reporton Neurology Visit Report [facility] [address], [address] [place] [address] OFFICE VISIT Date of Service: 04/17/25 MR#: [id number] Acct: [id number] Name: KASSY KENYON Rep #: [id number] : 1935 Provider: Dr. Damien aceves MD Age/Sex: 89/F Location: [facility]. Status: Signed HPI HPI Details: Interim History: Kassy returns for follow-up visit. She has a history of pulmonary fibrosis, vitamin D deficiency, cardiac ablation for SVT in 2003, and hyperlipidemia who presents for evaluation of memory loss. She is accompanied by her daughter. She began to exhibit memory difficulty around 2019. Her memory difficulty has worsened over time. She has a tendency to forget conversations and to repeat conversations. She had some difficulty with making decisions regarding her finances and her finances are now managed by family members. She lives with her son and [id number]. She remains independent in basic activities of daily living at home. She no longer drives. When she had previously driven she had become lost in a familiar location. She has difficulty recalling past events. She has had 2 COVID-19 infections, the last of which occurred in 2022 and she has had resultant fatigue. She denies having hearing loss, numbness, headaches or visual field loss. She has vague weakness in both legs. She experiences occasional disequilibrium with position change. She has some anxiety. She denies having depression. She takes citalopram. She had undergone neuropsychological testing on 06/27/2023 in [place] and a report seen on a cell phone available today reported that the patient had some difficulty with working memory, problem-solving and verbal function. Mini-Mental status exam score was 26/30 on 07/10/2024 and 27/30 in February 2025. Donepezil was initiated in February 2025. No change functionally in her memory has been noted since initiation of donepezil. Donepezil caused vivid dreams and she now takes donepezil as a 10 mg morning dose and vivid dreams have lessened. Physical Exam: Neuro: The patient is awake; she is mildly bradyphrenic; speech is fluent; basic conversational language function is within normal limits; Mini-Mental status exam score is 25/30 Heart: Regular rhythm and rate Supplemental Info Cardiac echo (07/10/2024): Normal LV size. Left ventricular systolic function is normal. The left ventricular ejection fraction is 60 %. Stage 1 diastolic dysfunction. Mild (1+) aortic valve insufficiency. EKG (08/21/2024): Sinus rhythm. Left axis. Anterior fascicular block. Voltage criteria for LVH (R (aVL) exceeds 1.01 mV). Voltage criteria without ST/T abnormality may be normal. Old anterior infarct. Abnormal EKG. CBC, CMP, B12, thiamine, vitamin D, folate, TSH (02/04/2025): B12 380 (near low end of normal range) Head MRI (02/22/2025): FINDINGS: No acute or hyperacute infarcts. No intracerebral or extra-axial hematomas. Bilateral cerebral periventricular and subcortical foci of high T2/FLAIR WI signal. Normal MRI signal of the cerebellar hemispheres and brain stem. Dilated ventricular system, cortical sulci and extra-axial CSF spaces. No shift of midline structures. Normal MRI appearance of the petrous temporal bones cerebellopontine angles with no definite masses. Normal MRI appearance of orbital structures, both globes, optic nerves, optic chiasm, optic tracts and optic radiations. Scanned paranasal sinuses are unremarkable. IMPRESSION: No acute infarcts. No intracerebral or extra-axial hematomas. Bilateral cerebral microvascular ischemic changes. Age appropriate brain involutional changes. These images were reviewed on 03/05/2025. Moderate diffuse cerebral atrophy is noted. 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 Office Meds cyanocobalamin (vitamin B-12) 1,000 mcg/mL injection solution Performing Provider: Damien Hampton MD Performing Location: [facility] Administered by: Meghanmirna Romero on 04/17/25 08:42 Dose Route Admin Location Dispensed Lot Number Expiration Date [facility] Siddharth ufacturer 1,000 mcg IM left deltoid 1 mL [id number] 02/01/27 [id number] SILVINA NINA Comments: The patient presents for her first Vitamin B12 injection for treatment of fatigue. She has fatigue. The patient is awake and alert. Vitamin B12 1,000 IM was administered today. There were no complications. Assessment and Plan Assessment and Plan (1) Dementia: Status: Acute (2) Vitamin D deficiency: Status: Resolved (3) Fatigue: Status: Acute Orders: Orders Vitamin B12 Today R53.83 - Other fatigue Medications: New memantine Week #1 7 mg PO QAM 7 ea 0RF memantine Week #2 14 mg PO QAM 7 ea 0RF memantine Week #3 21 mg PO QAM 7 ea 0RF memantine Week #4 and thereafter 28 mg PO QAM 30 ea 6RF Changed From donepezil Begin after completing (more content not included)... Normal [facility] Magnetic resonance imaging r eportOrdered By: Aarti Truong on 02-23-2025 Study report [facility] Imaging Services [address] [place], [place] [address] Brain without Contrast MR#: [id number] Acct: [id number] Name: KASSY KENYON Rep #: [id number] : 1935 F 89 From: Shola Truong MD PCP: Dr. Kim Schaffer MD Status: REG CLI Study:Brain without Contrast Date of Exam: 02/22/25 Exam# [id number] Ordering Dr: Damien Hampton MD PROCEDURE: BRAIN WITHOUT CONTRAST 02/22/2025 REASON FOR EXAM: DEMENTIA TECHNIQUE: BRAIN WITHOUT CONTRAST Multiplanar and multisequence images were obtained. COMPARISON: none FINDINGS: No acute or hyperacute infarcts. No intracerebral or extra-axial hematomas. Bilateral cerebral periventricular and subcortical foci of high T2/FLAIR WI signal. Normal MRI signal of the cerebellar hemispheres and brain stem. Dilated ventricular system, cortical sulci and extra-axial CSF spaces. No shift of midline structures. Normal MRI appearance of the petrous temporal bones cerebellopontine angles withno definite masses. Normal MRI appearance of orbital structures, both globes, optic nerves, optic chiasm, optic tracts and optic radiations. Scanned paranasal sinuses are unremarkable. MRI/Brain without Contrast IMPRESSION: No acute infarcts. No intracerebral or extra-axial hematomas. Bilateral cerebral microvascular ischemic changes. Age appropriate brain involutional changes. Reading Location[facility] CC: Dr. Kim Schaffer MD; Dr. Damien Hampton MD ~ Containers Sales Representative: Signed [facility] Brain without Contraston Brain without Contrast [facility] Imaging Services [address] [place] [address] Brain without Contrast MR#: [id number] Acct: [id number] Name: KASSY KENYON Rep #: [id number] : 1935 F 89 From: Aarti sigala MD PCP: Dr. Kim Schaffer MD Status: REG CLI Study: Brain without Contrast Date of Exam: 02/22/25 Exam# [id number] Ordering Dr: Damien Hampton MD PROCEDURE: BRAIN WITHOUT CONTRAST 02/22/2025 REASON FOR EXAM: DEMENTIA TECHNIQUE: BRAIN WITHOUT CONTRAST Multiplanar and multisequence images were obtained. COMPARISON: none FINDINGS: No acute or hyperacute infarcts. No intracerebral or extra-axial hematomas. Bilateral cerebral periventricular and subcortical foci of high T2/FLAIR WI signal. Normal MRI signal of the cerebellar hemispheres and brain stem. Dilated ventricular system, cortical sulci and extra-axial CSF spaces. No shift of midline structures. Normal MRI appearance of the petrous temporal bones cerebellopontine angles with no definite masses. Normal MRI appearance of orbital structures, both globes, optic nerves, optic chiasm, optic tracts and optic radiations. Scanned paranasal sinuses are unremarkable. MRI/Brain without Contrast IMPRESSION: No acute infarcts. No intracerebral or extra-axial hematomas. Bilateral cerebral microvascular ischemic changes. Age appropriate brain involutional changes. Reading Location: [facility] CC: Dr. Kim Schaffer MD; Dr. Damien Hampton MD Containers Sales Representative: Signed Normal [facility] Folates, RBCon 02-06-2025 Fol.,Hemolysate 371.0 ng/mL Normal Not Estab. [facility] Comment on above: Order Comment: Test( s) 614114-Cpu. B1, Whole Bloodwas developed and its performance characteristicsdetermined by [facility]. It has not been cleared or approvedby the Food and Drug Administration. Performed By: #### L 3300.8000, L3300.0960, L500.4050, L3100.1725, L503.0106, L100.0500, L501.9520 ####[facility] [address] [place], [place], [id number](009) Folate, RBC 930 ng/mL Normal >498 [facility] Comment on above: Order Comment: Test( s) [id number]-Cuh. B1, Whole Bloodwas developed and its performance characteristicsdetermined by [facility]. It has not been cleared or approvedby the Food and Drug Administration. Performed By: #### L 3300.8000, L3300.0960, L500.4050, L3100.1725, L503.0106, L100.0500, L501.9520 ####[facility] [address] [place], [place], [phone](609) Hematocrit (Bld) [Volume fraction] 39.9 % Normal 34.0-46.6 [facility] Comment on above: Order Comment: Test( s) 633204-Hhf. B1, Whole Bloodwas developed and its performance characteristicsdetermined by [facility]. It has not been cleared or approvedby the Food and Drug Administration. Performed By: #### L 3300.8000, L3300.0960, L500.4050, L3100.1725, L503.0106, L100.0500, L501.9520 ####[facility] [address] [place], [place], [id number] Vitamin B1, Thiamineon 02-06 VIT B1 THIAMINE 122.3 nmol/L Normal 66.5-200.0 [facility] Comment on above: Order Comment: Test( s) 003068-Ixi. B1, Whole Bloodwas developed and its performance characteristicsdetermined by [email or web address]. It has not been cleared or approvedby the Food and Drug Administration. Result Comment: Perf ormed at: [address] [id number] Director Of Digital Platforms: Bryan Buck PhD, Phone: [phone] Performed at: [address] [id number] Director Of Digital Platforms: Mimi Correa MD, Phone: [phone] Performed By: #### L 3300.8000, L3300.0960, L500.4050, L3100.1725, L503.0106, L100.0500, L501.9520 ####[facility] [address] [place], [place], [id number] Vitamin D 1,25-Dihydroxyon 0 02-06-2025 VIT D 1,25 DIHY 55.5 pg/mL Normal 24.8-81.5 [facility] Comment on above: Result Comment: Perf ormed at: [address] [id number] Director Of Digital Platforms: Mimi Correa MD, Phone: [phone] Performed By: #### L 3300.8000, L3300.0960, L500.4050, L3100.1725, L503.0106, L100.0500, L501.9520 #### [facility] [address] [place], [place], [id number] Anion gap in Serum or Plasma Ordered By: Damien Hampton on 02-04-2025 Anion gap [Moles/Vol] 10 mmol/L 5-15 [facility] BUN/creatinine ratioOrdered By: Damien Hampton on 02-04-2025 Urea nitrogen/Creatinine [Mass ratio] 18.4 mg/mg 10-20 [facility] Bilirubin, totalOrdered By: Damien Hampton on 02-04-2025 Bilirubin [Mass/Vol] 0.56 mg/dL 0.00-1.[address] [facility] CBC-Complete Blood Cnt No Di ffon 02-04-2025 Erythrocyte distribution width (RBC) [Ratio] 14.0 % Normal 11.6-14.6 [facility] Comment on above: Performed By: #### L 3300.8000, L3300.0960, L500.4050, L3100.1725, L503.0106, L100.0500, L501.9520 #### [facility] [address] [place], [address] Hematocrit (Bld) [Volume fraction] 40.9 % Normal 37-47 [facility] Comment on above: Performed By: #### L 3300.8000, L3300.0960, L500.4050, L3100.1725, L503.0106, L100.0500, L501.9520 #### [facility] [address] [place], [address] Hemoglobin (Bld) [Mass/Vol] 12.6 g/dL Normal 12.0-15.0 [facility] Comment on above: Performed By: #### L 3300.8000, L3300.0960, L500.4050, L3100.1725, L503.0106, L100.0500, L501.9520 #### [facility] [address] [place], [address] MCH (RBC) [Entitic mass] 29.8 pg Normal 27.0-32.0 [facility] Comment on above: Performed By: #### L 3300.8000, L3300.0960, L500.4050, L3100.1725, L503.0106, L100.0500, L501.9520 #### [facility] [address] [place], [address] MCHC (RBC) [Mass/Vol] 30.8 g/dL Low 32-36 [facility] Comment on above: Performed By: #### L 3300.8000, L3300.0960, L500.4050, L3100.1725, L503.0106, L100.0500, L501.9520 #### [facility] [address] [place], [address] MCV (RBC) [Entitic vol] 96.7 fL Normal 81-99 [facility] Comment on above: Performed By: #### L 3300.8000, L3300.0960, L500.4050, L3100.1725, L503.0106, L100.0500, L501.9520 #### [facility] [address] [place], [address] Platelet mean volume (Bld) [Entitic vol] 10.6 fL Normal 6.2-12.0 [facility] Comment on above: Performed By: #### L 3300.8000, L3300.0960, L500.4050, L3100.1725, L503.0106, L100.0500, L501.9520 #### [facility] [address] [place], [address] Platelets (Bld) [#/Vol] 149 10*3/uL Low 150-450 [facility] Comment on above: Performed By: #### L 3300.8000, L3300.0960, L500.4050, L3100.1725, L503.0106, L100.0500, L501.9520 #### [facility] [address] [place], [address] RBC (Bld) [#/Vol] 4.23 10*6/uL Normal 4.2-5.4 [facility] Comment on above: Performed By: #### L 3300.8000, L3300.0960, L500.4050, L3100.1725, L503.0106, L100.0500, L501.9520 #### [facility] [address] [place], [address] RDW SD 49.5 fl High 35.1-43.9 [facility] Comment on above: Performed By: #### L 3300.8000, L3300.0960, L500.4050, L3100.1725, L503.0106, L100.0500, L501.9520 #### [facility] [address] [place], [address] WBC (Bld) [#/Vol] 8.3 10*3/uL Normal 4.4-11.0 [facility] Comment on above: Performed By: #### L 3300.8000, L3300.0960, L500.4050, L3100.1725, L503.0106, L100.0500, L501.9520 #### [facility] [address] [place], [address] Carbon dioxide, total [Moles /volume] in Central venous bloodOrdered By: Damien Hampton on 02-04-2025 CO2 [Moles/Vol] 25.2 mmol/L 21.0-32.0 [facility] Chloride assayOrdered By: Ra juan pablo Hampton on 02-04-2025 Chloride [Moles/Vol] 105 mmol/L 98-[address] [facility] Comprehensive Metabolic Prof ilon 02-04-2025 Albumin [Mass/Vol] 4.3 g/dL Normal 3.4-4.8 [facility] Comment on above: Performed By: #### L 3300.8000, L3300.0960, L500.4050, L3100.1725, L503.0106, L100.0500, L501.9520 #### [facility] [address] [place], [address] Albumin/Globulin [Mass ratio] 1.4 {ratio} Normal 0.9-2.4 [facility] Comment on above: Performed By: #### L 3300.8000, L3300.0960, L500.4050, L3100.1725, L503.0106, L100.0500, L501.9520 #### [facility] [address] [place], [address] ALK PHOS 61 U/L Normal 35-104 [facility] Comment on above: Performed By: #### L 3300.8000, L3300.0960, L500.4050, L3100.1725, L503.0106, L100.0500, L501.9520 #### [facility] [address] [place], [address] ALT [Catalytic activity/Vol] 11 U/L Normal <=34 [facility] Comment on above: Performed By: #### L 3300.8000, L3300.0960, L500.4050, L3100.1725, L503.0106, L100.0500, L501.9520 #### [facility] [address] [place], [address] AST [Catalytic activity/Vol] 17 U/L Normal <=31 [facility] Comment on above: Performed By: #### L 3300.8000, L3300.0960, L500.4050, L3100.1725, L503.0106, L100.0500, L501.9520 #### [facility] [address] [place], [address] Bilirubin [Mass/Vol] 0.56 mg/dL Normal 0.00-1.[address] [facility] Comment on above: Performed By: #### L 3300.8000, L3300.0960, L500.4050, L3100.1725, L503.0106, L100.0500, L501.9520 #### [facility] [address] [place], [address] BUN/CRE 18.4 RATIO Normal 10-20 [facility] Comment on above: Performed By: #### L 3300.8000, L3300.0960, L500.4050, L3100.1725, L503.0106, L100.0500, L501.9520 #### [facility] [address] [place], [address] Calcium [Mass/Vol] 9.6 mg/dL Normal 7.6-11.0 [facility] Comment on above: Performed By: #### L 3300.8000, L3300.0960, L500.4050, L3100.1725, L503.0106, L100.0500, L501.9520 #### [facility] [address] [place], [address] Chloride [Moles/Vol] 105 mmol/L Normal 98-[address] [facility] Comment on above: Performed By: #### L 3300.8000, L3300.0960, L500.4050, L3100.1725, L503.0106, L100.0500, L501.9520 #### [facility] [address] [place], [address] CO2 [Moles/Vol] 25.2 mmol/L Normal 21.0-32.0 [facility] Comment on above: Performed By: #### L 3300.8000, L3300.0960, L500.4050, L3100.1725, L503.0106, L100.0500, L501.9520 #### [facility] [address] [place], [address] Creatinine [Mass/Vol] 0.80 mg/dL Normal 0.70-1.20 [facility] Comment on above: Performed By: #### L 3300.8000, L3300.0960, L500.4050, L3100.1725, L503.0106, L100.0500, L501.9520 #### [facility] [address] [place], [address] GAP 10 Normal 5-15 [facility] Comment on above: Performed By: #### L 3300.8000, L3300.0960, L500.4050, L3100.1725, L503.0106, L100.0500, L501.9520 #### [facility] [address] [place], [address] GFR/1.73 sq M.predicted among non-blacks MDRD (S/P/Bld) [Vol rate/Area] 71 mL/min/{1.73_m2} Normal >60 [facility] Comment on above: Result Comment: mL/m in/1.73m2 CKD-EPI Creatinine Equation (2020) Performed By: #### L 3300.8000, L3300.0960, L500.4050, L3100.1725, L503.0106, L100.0500, L501.9520 #### [facility] [address] [place], [address] Globulin (S) [Mass/Vol] 3.0 g/dL Normal 2.2-4.2 [facility] Comment on above: Performed By: #### L 3300.8000, L3300.0960, L500.4050, L3100.1725, L503.0106, L100.0500, L501.9520 #### [facility] [address] [place], [address] Glucose [Mass/Vol] 96 mg/dL Normal 70-99 [facility] Comment on above: Performed By: #### L 3300.8000, L3300.0960, L500.4050, L3100.1725, L503.0106, L100.0500, L501.9520 #### [facility] [address] [place], [address] Potassium [Moles/Vol] 4.8 mmol/L Normal 3.3-5.1 [facility] Comment on above: Performed By: #### L 3300.8000, L3300.0960, L500.4050, L3100.1725, L503.0106, L100.0500, L501.9520 #### [facility] [address] [place], [address] Sodium [Moles/Vol] 140 mmol/L Normal 133-145 [facility] Comment on above: Performed By: #### L 3300.8000, L3300.0960, L500.4050, L3100.1725, L503.0106, L100.0500, L501.9520 #### [facility] [address] [place], [address] T PROT 7.3 g/dL Normal 5.9-8.4 [facility] Comment on above: Performed By: #### L 3300.8000, L3300.0960, L500.4050, L3100.1725, L503.0106, L100.0500, L501.9520 #### [facility] [address] [place], [address] Urea nitrogen [Mass/Vol] 15 mg/dL Normal 4-19 [facility] Comment on above: Performed By: #### L 3300.8000, L3300.0960, L500.4050, L3100.1725, L503.0106, L100.0500, L501.9520 #### [facility] [address] [place], [address] Erythrocyte distribution wid th ratioOrdered By: Damien Hampton on 02-04-2025 Erythrocyte distribution width (RBC) [Ratio] 14.0 % 11.6-14.6 [facility] Erythrocyte distribution wid th standard deviationOrdered By: Damien Hampton on 02-04-2025 Erythrocyte distribution width (RBC) [Ratio] 49.5 fl High 35.1-43.9 [facility] Erythrocyte folate measureme nt with hematocritOrdered By: Damien Hampton on 02-04-2025 Hematocrit (Bld) [Volume fraction] 39.9 % 34.0-46.6 [facility] Glomerular filtration rate ( GFR) estimation/1.73 sq m using serum, plasma, or whole bOrdered By: Damien Hampton on 02-04-2025 GFR/1.73 sq M.predicted among non-blacks MDRD (S/P/Bld) [Vol rate/Area] 71 mL/min/{1.73_m2} >60 [facility] Comment on above: mL/min/1.73m2 CKD-EP I Creatinine Equation (2020) Hematocrit Auto (Bld) [Volum e fraction]Ordered By: Damien Hampton on 02-04-2025 Hematocrit (Bld) [Volume fraction] 40.9 % 37-47 [facility] Hemoglobin measurementOrdere d By: Damien Hampton on 02-04-2025 Hemoglobin (Bld) [Mass/Vol] 12.6 g/dL 12.0-15.0 [facility] - Chemistry and C hemistry - challengeOrdered By: Damien Hampton on 02-04-2025 AST [Catalytic activity/Vol] 17 U/L <32 [facility] MCV (mean corpuscular volume ) determinationOrdered By: Damien Hampton on 02-04-2025 MCV (RBC) [Entitic vol] 96.7 fL 81-99 [facility] Mean corpuscular hemoglobin (MCH) determinationOrdered By: Damien Hampton on 02-04-2025 MCH (RBC) [Entitic mass] 29.8 pg 27.0-32.0 [facility] Mean corpuscular hemoglobin concentration (MCHC) determinationOrdered By: Damien Hampton on 02-04-2025 MCHC (RBC) [Mass/Vol] 30.8 g/dL Low 32-36 [facility] Mean platelet volume determi nationOrdered By: Damien Hampton on 02-04-2025 Platelet mean volume (Bld) [Entitic vol] 10.6 fL 6.2-12.0 [facility] Platelet countOrdered By: Ra juan pablo Hampton on 02-04-2025 Platelets (Bld) [#/Vol] 149 10*3/uL Low 150-450 [facility] Potassium measurement (mass/ volume)Ordered By: Damien Hampton on 02-04-2025 Potassium (Unsp spec) [Mass/Vol] 4.8 mmol/L 3.3-5.1 [facility] RBC Auto (Bld) [#/Vol]Ordere d By: Damien Hampton on 02-04-2025 RBC (Bld) [#/Vol] 4.23 10*6/uL 4.2-5.4 [facility] Serum creatinine measurement (mass/volume)Ordered By: Damien Hampton on 02-04-2025 Creatinine [Mass/Vol] 0.80 mg/dL 0.70-1.20 [facility] Serum globulin measurementOr dered By: Damien Hampton on 02-04-2025 Globulin (S) [Mass/Vol] 3.0 g/dL 2.2-4.2 [facility] Serum glucose measurement (m ass/volume)Ordered By: Damien Hampton on 02-04-2025 Glucose [Mass/Vol] 96 mg/dL 70-99 [facility] Serum or plasma alanine tobin otransferase (ALT) measurementOrdered By: Damien Hampton on 02-04-2025 ALT [Catalytic activity/Vol] 11 U/L <35 [facility] Serum or plasma albumin ramya urement (mass/volume)Ordered By: Damien Hampton on 02-04-2025 Albumin [Mass/Vol] 4.3 g/dL 3.4-4.8 [facility] Serum or plasma albumin/glob ulin mass ratioOrdered By: Damien Hampton on 02-04-2025 Albumin/Globulin [Mass ratio] 1.4 {ratio} 0.9-2.4 [facility] Serum or plasma alkaline adrian sphatase measurementOrdered By: Damien Hampton 02-04-2025 ALP [Catalytic activity/Vol] 61 U/L 35-104 [facility] Serum or plasma calcitriol m easurement (mass/volume)Ordered By: Damien Hampton on 02-04-2025 1,25-dihydroxyvitamin D3 [Mass/Vol] 55.5 pg/mL 24.8-81.5 [facility] Comment on above: Performed at: [facility] [address] [id number] Director: Mimi Correa MD, Phone: [phone] Serum or plasma calcium ramya urement (mass/volume)Ordered By: Damien Hampton on 02-04-2025 Calcium [Mass/Vol] 9.6 mg/dL 7.6-11.0 [facility] Serum or plasma thiamine sharon surement (mass/volume)Ordered By: Damien Hampton on 02-04-2025 Thiamine [Mass/Vol] 122.3 nmol/L 66.5-200.0 [facility] Comment on above: Performed at: [facility] [address] [id number] Director: Bryan Buck PhD, Phone: [phone] at: [facility] [address] [id number] Director: Mimi Correa MD, Phone: [phone] Serum or plasma urea nitroge n measurement (mass/volume)Ordered By: Damien Hampton on 02-04-2025 Urea nitrogen [Mass/Vol] 15 mg/dL 4-19 [facility] Sodium levelOrdered By: Johnna Hampton on 02-04-2025 Sodium [Moles/Vol] 140 mmol/L 133-145 [facility] TSH DL <= 0.005 mIU/L QnOrde red By: Damien Hampton on 02-04-2025 TSH Qn 3.470 uIU/mL 0.300-4.200 [facility] Thyroid Stim Hormone (TSH)on 02-04-2025 TSH 3.470 uIU/mL Normal 0.300-4.200 [facility] Comment on above: Performed By: #### L 3300.8000, L3300.0960, L500.4050, L3100.1725, L503.0106, L100.0500, L501.9520 #### [facility] [address] [place], [address] Total proteinOrdered By: Hang Hampton on 02-04-2025 Protein [Mass/Vol] 7.3 g/dL 5.9-8.4 [facility] Vitamin B12on 02-04-2025 Cobalamin (Vitamin B12) [Mass/Vol] 380 pg/mL Normal 180-914 [facility] Comment on above: Performed By: #### L 3300.8000, L3300.0960, L500.4050, L3100.1725, L503.0106, L100.0500, L501.9520 #### [facility] [address] [place], [place], [address] Vitamin B12 ser/plasOrdered By: Damien Hampton on 02-04-2025 Cobalamin (Vitamin B12) [Mass/Vol] 380 pg/mL 180-914 [facility] White blood cell (WBC) count Ordered By: Damien Hampton on 02-04-2025 WBC (Bld) [#/Vol] 8.3 10*3/uL 4.4-11.0 [facility] Neurology Visit Reporton Neurology Visit Report [facility] [address], [address] [place] [address] OFFICE VISIT Date of Service: 02/03/25 MR#: [id number] Acct: [id number] Name: KASSY KENYON Rep #: [id number] : 1935 Provider: Dr. Damien aceves MD Age/Sex: 89/F Location: [facility] Status: Signed with Addenda ADDENDUM by Dr. Damien Hampton MD on 03/05/25 at 1624 Addendum Addendum (03/05/2025): Head MRI (02/22/2025): FINDINGS: No acute or hyperacute infarcts. No intracerebral or extra-axial hematomas. Bilateral cerebral periventricular and subcortical foci of high T2/FLAIR WI signal. Normal MRI signal of the cerebellar hemispheres and brain stem. Dilated ventricular system, cortical sulci and extra-axial CSF spaces. No shift of midline structures. Normal MRI appearance of the petrous temporal bones cerebellopontine angles with no definite masses. Normal MRI appearance of orbital structures, both globes, optic nerves, optic chiasm, optic tracts and optic radiations. Scanned paranasal sinuses are unremarkable. IMPRESSION: No acute infarcts. No intracerebral or extra-axial hematomas. Bilateral cerebral microvascular ischemic changes. Age appropriate brain involutional changes. These images were reviewed on 03/05/2025. Moderate diffuse cerebral atrophy is noted. 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 03/05/25 1624 Date Damien Hampton MD cc: Dr. Kim Schaffer MD * Signed HPI HPI Details: History: The patient [...] members. She lives with her son and [id number]. She remains independent in basic activities of [...] had undergone neuropsychological testing on 06/27/2023 in [place] and a report seen on a cell [...] rhythm and rate Extremities: No cyanosis or e (more content not included)... Normal [facility] Breast imaging reportOrdered By: Dahiana Serrano on 11-28-2024 Study report [facility] Imaging Services [address] [place] [address] SCRN MAMM (CAD)W/SUKHDEEP ZAPATA MR#: [id number] Acct: [id number] Name: KASSY KENYON Rep #: [id number] : 1935 F 89 From: Mario Serrano DO PCP: Dr. Kim Schaffer MD Status: [facility] CLI Study:SCRN MAMM (CAD)W/SUKHDEEP BILAT Date of Exa m: 11/27/24 Exam# [id number] Ordering Dr: Thomas Schaffer MD EXAM: SCRN [...] be mailed to the patient. Reading Location: [id number] CC: Dr. Kim Schaffer MD ~ Containers Sales Representative: Signed [facility] SCRN MAMM (CAD)W/SUKHDEEP BILATo n 11-27-2024 SCRN MAMM (CAD)W/SUKHDEEP BILAT [facility] Imaging Services [address] [place] [address] SCRN MAMM (CAD)W/SUKHDEEP BILAT MR#: [id number] Acct: [id number] Name: KASSY KENYON Rep #: [id number] : 1935 F 89 From: Dahiana Cummings PCP: Dr. Kim Schaffer MD Status: REG CLI Study: SCRN MAMM (CAD)W/SUKHDEEP BILAT Date of Exam: 11/03 02/26 Exam# [id number] Ordering Dr: Kim Schaffer MD EXAM: SCRN [...] be mailed to the patient. Reading Location: [id number] CC: Dr. Kim Schaffer MD Containers Sales Representative: Signed Normal [facility] 12 Lead EKG performed by [facility] on 08-21-2024 12 Lead EKG performed by [facility] [address] [place] [address] 12 Lead EKG performed by [facility] 08/21/24 0907 MR#: [id number] Acct: [id number] Name: KASSY KENYON Rep #: [id number] : 1935 89 From: Tyler Jones MD Attending Dr: Dr. Tyler Jones MD Status: DEP Robe MORA Ordering Dr: Tyler Jones MD Date: 08/21/24 Location: [facility] Sex: F C Admitted: [facility]/12 Lead EKG performed by [facility] ECG Report Interpretation S inus Rhythm -Left axis -anterior fascicular block. Voltage criteria for LVH (R(aVL) exceeds 1.01 mV) -Voltage criteria w/o ST/T abnormality may be normal. -Old anterior infarct. ABNORMAL Electronically signed on 08/29/2024 at 09:48 by Tyler Joneswood Software Version 8610 08/29/2451 Date Tyler Jones MD CC: Dr. Kim Schaffer MD Date Dictated: 08/21/24906 Date Transcribed: 08/21/24906 Containers Sales Representative: [place] Signed Normal [facility] Cardiology Visit Reporton Cardiology Visit Report [facility] [address] [place] [address]. [address] [place] [address] OFFICE VISIT Date of Service: 08/21/24 MR#: [id number] Acct: [id number] Name: KASSY KENYON Rep #: [id number] : 1935 Provider: Dr. Tyler Jones MD Age/Sex: 89/F Location: [facility] Status: Signed HPI HPI History of Present Illness Details: Pleasant 89-year-old lady who is here for establishment of cardiac care. She recently moved here from [place] and is accompanied by her daughter. She has had some intermittent dizziness which she says started after COVID over 2 years ago. She thinks that she was put on midodrine while she was in [place] but she has actually discontinued this. 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 Normal [facility] Echo Completeon 07-10-2024 [facility] [address] [place] [address]. [place] [address] Echo Complete 07/10/24903 MR#: [id number] Acct: [id number] Name: KASSY KENYON Rep #: [id number] : 1935 89 From: Tyler Jones MD Attending Dr: Dr. Kim Schaffer MD Status: REG I Ordering Dr: Kim Schaffer MD Date: 07/10/24 Location: [facility] Sex: F C Admitted: Reason For Study: [...] Physician: Kim Schaffer Performed By: Hilary Lewis, [facility] 07/10/241220 Date Tyler Jones MD CC: Dr. Kim Schaffer MD Date Dictated: 07/10/24903 Date Transcribed: 07/10/241220 Containers Sales Representative: Signed Normal [facility] Neurology Visit Reporton Neurology Visit Report [facility] [address] [place] [address] OFFICE VISIT Date of Service: 07/10/24 MR#: [id number] Acct: [id number] Name: KASSY KENYON Rep #: [id number] : 1935 Provider: Dr. Edgar ramirez MD Age/Sex: 89/F Location: [facility] Status: Signed with Addenda ADDENDUM by Dr. Edgar Pierce MD on 08/19/24 at 1433 HPI Details: KASSY KENYON, is a 89 F who presents [...] old right handed female who presents to [facility]. She was referred by [facility] by [place]. Nicole for mild cognitive impairment. This patient is accompanied by her daughter. Patient seen by me and nurse practitioner Criss. Patient had been living in [place] for a period of time. Her had her at 1 point. Patient was then living with a boyfriend in [place] in a condo who within the past year. Patient seems to have had some difficulty with cognitive performance. Patient has had memory testing and evaluations performed in [place] which suggest that she does have cognitive [...] Patient did have 1 episode while in [place] of not being able to find her [...] for which she is to see a marble installer supervisor. Psychiatric patient seems to deny depression but [...] sore throat (more content not included)... Normal [facility] Vital Signs Date Time Vital Sign Value Performing Clinician Cam mckinney 04-17-2025 08:00-0400 Body mass index (BMI) [Ratio] 24.2 kg/m2 Dr. Kim Schaffer MD Work Phone: [facility] 04-17-2025 08:00-0400 Body temperature 97.5 [degF] Dr. Kim Schaffer MD Work Phone: [facility] 04-17-2025 08:00-0400 Body weight 60.[address] Kim Schaffer MD Work Phone: [facility] 04-17-2025 08:00-0400 Diastolic blood pressure 70 mm[Hg] Dr. Kim Schaffer MD Work Phone: [facility] 04-17-2025 08:00-0400 Heart rate 73 /min Dr. Kim Schaffer MD Work Phone: [facility] 04-17-2025 08:00-0400 Respiratory rate 16 /min Dr. Kim Schaffer MD Work Phone: [facility] 04-17-2025 08:00-0400 SaO2% (BldA) [Mass fraction] 96 % Dr. Kim Schaffer MD Work Phone: [facility] 04-17-2025 08:00-0400 Systolic blood pressure 123 mm[Hg] Dr. Kim Schaffer MD Work Phone: [facility] 02-03-2025 13:58-0400 Body height 157.[address] Kim Schaffer MD Work Phone: [facility] 02-03-2025 13:58-0400 Body mass index (BMI) [Ratio] 24.8 kg/m2 Dr. Kim Schaffer MD Work Phone: 4(781)372-7[address]13 [place] [address] 02-03-2025 13:58-0400 Body temperature 98.4 [degF] Dr. Kim Schaffer MD Work Phone: [facility] 02-03-2025 13:58-0400 Body weight 61.[address] Kim Schaffer MD Work Phone: [facility] 02-03-2025 13:58-0400 Diastolic blood pressure 67 mm[Hg] Dr. Kim Schaffer MD Work Phone: [facility] 02-03-2025 13:58-0400 Heart rate 50 /min Dr. Kim Schaffer MD Work Phone: 5(759)374-439513 [place] [address] 02-03-2025 13:58-0400 Respiratory rate 17 /min Dr. Kim Schaffer MD Work Phone: [facility] 02-03-2025 13:58-0400 SaO2% (BldA) [Mass fraction] 96 % Dr. Kim Schaffer MD Work Phone: [facility] 02-03-2025 13:58-0400 Systolic blood pressure 119 mm[Hg] Dr. Kim Schaffer MD Work Phone: [facility] 08-21-2024 09:06-0500 Body height 157.[address] Kim Schaffer MD Work Phone: [facility] 08-21-2024 09:06-0500 Body mass index (BMI) [Ratio] 25.4 kg/m2 Dr. Kim Schaffer MD Work Phone: [facility] 08-21-2024 09:06-0500 Body weight 63.[address] Kim Schaffer MD Work Phone: [facility] 08-21-2024 09:06-0500 Diastolic blood pressure 68 mm[Hg] Dr. Kim Schaffer MD Work Phone: [facility] 08-21-2024 09:06-0500 Heart rate 92 /min Dr. Kim Schaffer MD Work Phone: [facility] 08-21-2024 09:06-0500 Respiratory rate 16 /min Dr. Kim Schaffer MD Work Phone: [facility] 08-21-2024 09:06-0500 Systolic blood pressure 106 mm[Hg] Dr. Kim Schaffer MD Work Phone: [facility] Encounters Encounter Date Encounter Type Care Provider Facility Start: 04-17-2025 End: 04-17-[address] Damien Hampton MD -[facility] Work Phone: Start: 04-17-2025 End: 04-17-[address] Kim Schaffer MD Work Phone: -[facility] Start: 02-22-2025 End: 02-22-[address] Damien Hampton MD -[facility] Work Phone: Start: 02-22-2025 End: 02-22-[address] Kim Schaffer MD Work Phone: [facility] Work Phone: Start: 02-04-2025 End: 02-04-[address] Damien Hampton MD -[facility] Work Phone: Start: 02-04-2025 End: 02-04-[address] Kim Schaffer MD Work Phone: [facility] Work Phone: Start: 02-03-2025 End: 02-03-[address] Damien Hampton MD -[facility] Work Phone: Start: 02-03-2025 End: 02-03-[address] Kim Schaffer MD Work Phone: [facility] Work Phone: Start: 01-14-2025 ambulatory Kim Schaffer Facility: [facility] Start: 11-27-2024 End: 11-27-[address] Kim Schaffer MD Work Phone: [facility] Work Phone: Start: 11-27-2024 End: 11-27-[address] Kim Schaffer MD -[facility] Work Phone: Start: 11-27-2024 End: 11-27-2024 ambulatory Kim Schaffer Facility:[facility] Start: 08-21-2024 End: 08-21-[address] Tyler Jones MD -[facility] Work Phone: Start: 08-21-2024 End: 08-21-2024 [facility] Start: 07-10-2024 End: 07-10-2024 ambulatory Edgar Pierce Facility:[facility] Start: 07-10-2024 ambulatory [facility] Facility:[facility] Start: 07-10-2024 End: 07-10-2024 ambulatory [facility] Facility:[facility] Procedures Date Procedure Procedure Detail Performing Clinician Start: 02-22-2025 MRI of brain without contrast Dr. Kim Schaffer MD Work Phone: Start: 02-04-2025 Folic acid measureme nt, RBC Dr. Kim Schaffer MD Work Phone: Start: 11-27-2024 Screening mammography D syed Schaffer MD Work Phone: Start: 08-21-2024 Evaluation of diagno stic study results Dr. Kim Schaffer MD Work Phone: Plan of Treatment Date Care Activity Detail Author MR Brain WO contrast [facility] Patient referral [facility] Work Phone: Vitamin B6 measurement [facility] Payers Date Payer Category Payer Self-pay 2024 Private Health Insurance [id number] Medicare [id number] Unknown [id number] 2.16.8 [id number] Unknown [id number] 2.16.8 [id number] Unknown [id number] 2.16.8 [id number] Unknown [id number] 2.16.8 [id number] Unknown [id number] 2.16.8 [id number] Unknown [id number] 2.16.8 [id number] Unknown [id number] 2.16.8 [id number] Unknown [id number] 2.16.8 [id number] Unknown [id number] 2.16.8 [id number] Unknown [id number] 2.16.8 [id number] Social History Date Type Detail Facility Start: 07-10-2024 End: 04-17-2025 Tobacco smoking status NHIS Never smoked tobacco (finding) [facility] Start: 12-01-2024 Sex Female (finding) [facility] Start: 1935 Sex Assigned At Female [facility] Progress note 04-17-2025 Note Date & Type Note Facility 04-17-2025 Progress note [facility] Progress note 04-17-2025 Note Date & Type Note Facility 04-17-2025 Progress note Note Date/Time April 17, 2025 8:46am [facility] [address] [place] [address], [address] [place] [address] OFFICE VISIT Date of Service: 04/17/25 MR#: [id number] Acct: [id number] Name: KASSY KENYON Rep #: [id number] : 1935 Provider: Dr. Johnna Hampton MD Age/Sex: 89/F Location: [facility]. Status: Signed HPI HPI Details: Interim History: Kassy returns for follow-up visit. She has a history of pulmonary fibrosis,vitamin D deficiency, cardiac ablation for SVT in 2003, and hyperlipidemia who presents for evaluation of memory loss. She is accompanied by her daughter. She began to exhibit memory difficulty around 2019. Her memory difficulty has worsened over time. She has a tendency to forget conversations and to repeat conversations. She had some difficulty with making decisions regarding her finances and her finances are now managed by family members. She lives with ketty and [id number]. She remains independent in basic activities of daily living at home. She no longer drives. When she had previously driven she had become lost in a familiar location. She has difficulty recalling past events. She has had 2 COVID-19 infections, the last of which occurred in 2022 and she has had resultant fatigue. She denies having hearing loss, numbness, headaches or visual field loss. She has vague weakness in both legs. She experiences occasional disequilibrium with position change. She has some anxiety. She denies having depression. She takes citalopram. She had undergone neuropsychological testing on 06/27/2023 in [place] and a report seen on a cell phone available today reported that the patient had some difficulty with workingmemory, problem-solving and verbal function. Mini-Mental status exam score was 26/30 on 07/10/2024 and 27/30 in February 2025. Donepezil was initiated in February 2025. No change functionally in her memory has been noted since initiation of donepezil. Donepezil caused vivid dreams and amie takes donepezil as a 10 mg morning dose and vivid dreams have lessened. Physical Exam: Neuro: The patient is awake; she is mildly bradyphrenic; speech is fluent; basicconversational language function is within normal limits; Mini-Mental status exam score is 25/30 Heart: Regular rhythm and rate Supplemental Info Cardiac echo (07/10/2024): Normal LV size. Left ventricular systolic function is normal. The left ventricular ejection fraction is 60 %. Stage 1 diastolic dysfunction. Mild (1+) aortic valve insufficiency. EKG (08/21/2024): Sinus rhythm. Left axis. Anterior fascicular block. Voltagecriteria for LVH (R (aVL) exceeds 1.01 mV). Voltage criteria without ST/T abnormality may be normal. Old anterior infarct. Abnormal EKG. CBC, CMP, B12, thiamine, vitamin D, folate, TSH (02/04/2025): B12 380 (near low end of normal range) Head MRI (02/22/2025): FINDINGS: No acute or hyperacute infarcts. No intracerebral or extra-axial hematomas. Bilateral cerebral periventricular and subcortical foci of high T2/FLAIR WI signal. Normal MRI signal of the cerebellar hemispheres and brain stem. Dilated ventricular system, cortical sulci and extra-axial CSF spaces. No shift of midline structures. Normal MRI appearance of the petrous temporal bones cerebellopontine angles withno definite masses. Normal MRI appearance of orbital structures, both globes, optic nerves, optic chiasm, optic tracts and optic radiations. Scanned paranasal sinuses are unremarkable. IMPRESSION: No acute infarcts. No intracerebral or extra-axial hematomas. Bilateral cerebral microvascular ischemic changes. Age appropriate brain involutional changes. These images were reviewed on 03/05/2025. Moderate diffuse cerebral atrophy is noted. 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 Office Meds cyanocobalamin (vitamin B-12) 1,000 mcg/mL injection solution Performing Provider: Damien Hampton MD Performing Location: [facility] Administered by: Meghan Romero on 04/17/25 08:42 Dose Route Admin Location Dispensed Lot Number Expiration Date [place] Regulatory Agency Director 1,000 mcg IM left deltoid 1 mL [id number] 02/01/27 36433-919-87 VIT ANDRY NINA Comments: The patient presents for her first Vitamin B12 injection for treatmentof fatigue. She has fatigue. The patient is awake and alert. Vitamin B12 1,000 IM was administered today. There were no complications. Assessment and Plan Assessment and Plan (1) Dementia: Status: Acute (2) Vitamin D deficiency: Status: Resolved (3) Fatigue: Status: Acute Orders: Orders Vitamin B12 Today R53.83 - Other fatigue Medications: New memantine Week #1 7 mg PO QAM 7 ea 0RF memantine Week #2 14 mg PO QAM 7 ea 0RF memantine Week #3 21 mg PO QAM 7 ea 0RF memantine Week #4 and thereafter 28 mg PO QAM 30 ea 6RF Changed From donepezil Begin after completing one month of treatment of donepezil 5mg nightly 10 mg PO QHS 30 tabs 5RF To donepezil 10 mg PO QAM 30 tabs 5RF Discontinued donepezil Discontinued Reason: Pt no longer taking 5 mg PO QHS 30 tabs 0RF Plan Details Additional Comments: The patient has a mild dementia, 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 Her memory difficulty began around 2019 and has gradually worsened over time. She resides with her son and [id number]. Donepezil was initiated in February 2025. No change functionally has been noted in her memory since initiation of donepezil. A nighttime dose of donepezil caused vivid dreams; these have lessened by switching donepezil to a morning dose; she wishes to continue the 10mg dose of donepezil. - She may wish to consider treatment with Leqembi or Kisunla and further testing to assess whether the patient qualifies for either of these treatments will be pursued if the patient wishes. The family will contact the office and testing will be ordered if the patient wishes to proceed. - Donepezil 10 mg every morning will be continued. - Memantine ER 7 mg every morning titrating up to 28 mg every morning over a period of 4 weeks will be initiated. She has a history of vitamin D deficiency. Her last vitamin D level was in the normal range. She takes a vitamin D supplement. - Continuation of vitamin D 25 mcg daily is recommended. She has anxiety. She denied having depression. - She takes citalopram. She has fatigue. Her B12 level is near the lower end of the normal range. - B12 1000 mcg IM was administered today for her fatigue. If this is of benefit, she may schedule monthly B12 1000 mcg IM injections, if she wishes. I will have her return for reassessment in 5 months. 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 Required: No Accompanied by: Daughter Is patient in pain?: No Allergies amoxicillin Adverse Reaction (Mild, Verified 04/17/25 08:06) Rash Sulfa (Sulfonamide Antibiotics) Adverse Reaction (Mild, Verified 04/17/25 08:06) Rash ampicillin Adverse Reaction (Verified 04/17/25 08:06) Rash Medications ?Medication ?Instructions ?Recorded ?Confirmed ?Type albuterol sulfate 90 mcg/actuation 2 puff inhalation Q 4-6H PRN 07/10/24 04/17/25 History aerosol inhaler (Ventolin HFA) aspirin 81 mg chewable tablet 81 mg PO QDAY 07/10/24 0 04/17/25 History azelastine 137 mcg-fluticasone 50 1 spray intranasal O NCE PRN 07/10/24 04/17/25 History mcg/spray nasal spray cholecalciferol (vitamin D3) 25 25 mcg PO QDAY 4 04/17/25 History mcg (1,000 unit) capsule loratadine 10 mg tablet (Allergy 10 mg PO QDAY 4 04/17/25 History Relief (loratadine)) omeprazole 20 mg capsule,delayed 20 mg PO QDAY 4 04/17/25 History release simvastatin 40 mg tablet 40 mg PO QHS 07/10/24 History estradiol 0.01% (0.1 mg/gram) vaginal 08/09/24 5 History vaginal cream magnesium oxide 400 mg PO QDAY 08/09/2404/04 History citalopram 10 mg tablet 10 mg PO QDAY 02/03/2504/17 History donepezil 10 mg tablet 10 mg PO QAM #30 tabs 04/17/25 Rx memantine 14 mg capsule 14 mg PO QAM #7 ea 04/17/25 04/17/25 Rx sprinkle,extended release 24hr memantine 21 mg capsule 21 mg PO QAM #7 ea 04/17/25 04/17/25 Rx sprinkle,extended release 24hr memantine 28 mg capsule 28 mg PO QAM #30 ea 04/17/25 04/17/25 Rx sprinkle,extended release 24hr memantine 7 mg capsule 7 mg PO QAM #7 ea 04/17/25 0 04/17/25 Rx sprinkle,extended release 24hr Have you fallen in the past year?: No PFSH Medical History (Updated 04/17/25 @ 08:[address] Damien Hampton MD) Dizziness SVT (supraventricular tachycardia) Pulmonary emphysema Pulmonary hypertension Overactive bladder Insomnia Vitamin D deficiency Pulmonary fibrosis Cognitive impairment Depression Aortic insufficiency GERD (gastroesophageal reflux disease) Arthritis Hyperlipidemia Surgical History History of radiofrequency ablation procedure for cardiac arrhythmia (~2003) History of hysterectomy H/O breast biopsy History [...] do you feel safe at home: Yes Clinical Quality Measures Falls Risk Screening/Assistive Devices Have you fallen in the past year?: No Coding Level of Care Code Off vis,est,level 4 Diagnoses Dementia F03.90 Vitamin D deficiency E55.9 Fatigue R53.83 04/17/25 0846 <Electronically signed by Damien de anda MD> Date _ Damien Hampton MD Cosigner Signature: Date (if applicable) CC: ~ [facility] Work Phone: Evaluation note 02-03-2025 Note Date & Type Note Facility 02-03-2025 Evaluation note Diagnosis Onset Date Resolution Dementia acute February 03, 2025 1:55pm Vitamin D deficiency acute February 03, 2025 1:55pm [facility] Work Phone: Evaluation note 02-03-2025 Note Date & Type Note Facility 02-03-2025 Evaluation note Diagnosis Onset Date Resolution Dementia acute February 03, 2025 1:55pm Vitamin D deficiency resolved February 03, 2025 1:55pm Dementia acute April 17, 2 025 7:58am Fatigue acute April 17, 2 025 7:58am Vitamin D deficiency resolved Augu 2024 7:58am [facility] Work Phone: Evaluation note 08-21-2024 Note Date & Type Note Facility 08-21-2024 Evaluation note Diagnosis Onset Date Resolution Dizziness acute August 21, 2024 9:05am [facility] Work Phone: Evaluation note Note Date & Type Note Facility Evaluation note Diagnosis Onset Date Resolution Dementia acute February 03, 2025 1:55pm [facility] [employer] Work Phone: Reason for referral (narrative) Note Date & Type Note Facility Reason for referral (narrative) No reason for referral information available [facility] Work Phone: Chief Complaint and Reason [...] D deficiency February 03, 2025 1:55 pm Chief Complaint Admit Date SCREENING November 27, 2024 8:0 3am EST CARE-6 M FU February 03, 2025 1:55p m EORDERS February 04, 2025 8:56a m DEMENTIA February 22, 2025 9:50 am Chief Complaint Admit Date EST CARE-6 M FU February 03, 2025 1:55p m EORDERS February 04, 2025 8:56a m DEMENTIA February 22, 2025 9:50 am Discuss aricept April 17, 2025 7: 58am Reason for Visit Admit Date Dementia February 03, 2025 1:55p m Vitamin D deficiency February 03, 2025 1:55 pm Dementia April 17, 2025 7: 58am Fatigue April 17, 2025 7: 58am Vitamin D deficiency April 17, 2025 7 :58am Family History No Family History Records Found [...] Status: Inactive Member Role Status Dates Dr. iKm Schaffer MD Primary Care Provider Active Start: [...] February 04, 2025 End: February 04, 2025 Team Status: Inactive Member Role Status Dates Dr. Kim Schaffer MD Primary Care Provider Active Start: February 22, 2025 End: February 22, 2025 Dr. Damien Hampton MD Attending Provider Active Start: February 22, 2025 End: February 22, 2025 Dr. Damien Hampton MD Referring Provider Active Start: February 22, 2025 End: February 22, 2025 Team Status: Active Member Role/Relationship Status Dates Dr. Kim Schaffer MD Primary Care Provider Active Team Status: Inactive Member Role/Relationship Status Dates Dr. iKm Schaffer MD Primary Care Provider Active Start: February 03, 2025 End: February 03, 2025 Dr. Kim Schaffer MD Referring Provider Active Start: February 03, 2025 End: February 03, 2025 Dr. Damien Hampton MD Attending Provider Active Start: February 03, 2025 End: February 03, 2025 Team Status: Inactive Member Role/Relationship Status Dates Dr. Kim Schaffer MD Primary Care Provider Active Start: February 04, 2025 End: February 04, 2025 Dr. Damien Hampton MD Attending Provider Active Start: February 04, 2025 End: February 04, 2025 Dr. Damien Hampton MD Referring Provider Active Start: February 04, 2025 End: February 04, 2025 Team Status: Inactive Member Role/Relationship Status Dates Dr. Kim Schaffer MD Primary Care Provider Active Start: February 22, 2025 End: February 22, 2025 Dr. Damien Hampton MD Attending Provider Active Start: February 22, 2025 End: February 22, 2025 Dr. Damien Hampton MD Referring Provider Active Start: February 22, 2025 End: February 22, 2025 Team Status: Inactive Member Role/Relationship Status Dates Dr. Kim Schaffer MD Primary Care Provider Active Start: April 17, 2025 End: April 17, 2025 Dr. Kim Schaffer MD Referring Provider Active Start: April 17, 2025 End: April 17, 2025 Dr. Damien Hampton MD Attending Provider Active Start: April 17, 2025 End: April 17, 2025 Goals (unrecognized section and content) Goals may be documented in a n alternate sectionGoals may be documented in an alternate sectionGoals may be documented in an alternate sectionGoals may be documented in an alternate sectionGoals may be documented in an alternate section INFORMATION SOURCE (unrecogn ized section and content) DATE CREATED AUTHOR 04/18/2025 [facility] FOR RECORDS PERTAINING TO PATIENTS WHO [...] BE BASED ON THE PRIMARY CLINICAL RECORDS. [employer] [facility]. provides no warranty or guarantee of the accuracy or completeness of information in this document.
== END | disposition home or self-care (01) ==
LOC: MTLAB 16:11
PROVIDERS: PCP Family Medicine; Referring Provider Psychiatry & Neurology Neurology; Visit Provider Psychiatry & Neurology Neurology
DX: G30.9 Alzheimer's disease, unspecified (principal); F02.80 Dementia in other diseases classified elsewhere, unspecified severity, without behavioral disturbance, psychotic disturbance, mood disturbance, and anxiety
CPT/HCPCS: 36415; 81401

== ENCOUNTER → 2025-05-20 | Outpatient (CLI) | payer MEDICARE, SELFPAY ==
[2025-05-20 10:17] LABS: Hematocrit 39.6 % (37-47); Hemoglobin 12.3 g/dL (12.0-15.0); Mean Corp Hgb Conc 31.1 g/dL (32-36); Mean Corpuscular Volume 95.4 fL (81-99); Mean Platelet Vol. 10.6 fl (6.2-12.0); Platelet Count 141 K/mm3 (150-450); RBC Distribution Width CV 14.3 % (11.6-14.6); RBC Distribution Width SD 50.4 fl (35.1-43.9); Red Blood Count 4.15 M/mm3 (4.2-5.4); White Blood Count 8.6 K/mm3 (4.4-11.0)
[2025-05-20 10:32] LABS: AST(SGOT) 20 U/L (<=31); Alanine Aminotransfer ALT/SGPT 12 U/L (<=34); Albumin, Serum 4.2 g/dL (3.4-4.8); Alkaline Phosphatase 61 U/L (35-104); Anion Gap 12 (5-15); BUN 13 mg/dL (4-19); BUN/Creat Ratio 14.1 RATIO (10-20); Calcium,Total 9.5 mg/dL (7.6-11.0); Carbon Dioxide 24.2 mmol/L (21.0-32.0); Chloride 104 mmol/L (98-108); Globulin 3.4 g/dL (2.2-4.2); Glucose 87 mg/dL (70-99); Magnesium 2.2 mg/dL (1.5-2.2); Potassium 3.5 mmol/L (3.3-5.1)
== END | disposition home or self-care (01) ==
LOC: MTLAB 09:19
PROVIDERS: PCP Family Medicine; Referring Provider Psychiatry & Neurology Neurology; Visit Provider Psychiatry & Neurology Neurology
DX: F03.90 Unspecified dementia, unspecified severity, without behavioral disturbance, psychotic disturbance, mood disturbance, and anxiety (principal)
CPT/HCPCS: 36415; 80053; 83735; 85027

== ENCOUNTER 2025-06-09 07:46 | Outpatient (CLI) | payer MEDICARE, SELFPAY | END 2025-06-09 23:59 | disposition home or self-care (01) | LOC: CT 07:48 | PROVIDERS: PCP Family Medicine; Referring Provider Psychiatry & Neurology Neurology; Visit Provider Psychiatry & Neurology Neurology | DX: F03.90 Unspecified dementia, unspecified severity, without behavioral disturbance, psychotic disturbance, mood disturbance, and anxiety (principal) | CPT/HCPCS: 70450 ==

== ENCOUNTER 2025-06-27 15:30 | Outpatient (RCR) | payer MEDICARE, SELFPAY ==
--- NOTE | 2025-05-26 10:54 | HP.PTEVAL_ITS ---
Patient's Visit Information Visit Information Visit Information: SHYLA KENYON is a 89 year old F referred to Physical Therapy by Dr. Damien Hampton MD with a diagnosis of malaise, abnormality of gait.. Date of Evaluation: 05/26/25 Physical Therapist: José Miguel Minaya, DPT, OCS, CSCS Visit Plan Frequency: 2-3x /Week Duration: 4 Weeks Plan: 3x/week for 3-4 weeks for IE: review balance safety and importance of ex. treat with instruct and progress mat core strength, general sink exercises and weight shifting turning ex until safe then HEP. Subjective Subjective: Berna dtr present. Sits around and does not much. Feeels tired all the time adn imbalanced. Spends day watching TV. Lives with son in one story house. Wants to visit brot her upstairs. Basic ADLs: dress I, bathroom I, walk in shower I. No hobbies: Sees Berta for dementia. Employed: no Sleeping fine. Currently at [facility] house and dtr keeps her more active. No regular ex. One fall a month ago at [employer] tripping over dog. Doesn't feel balanced , just unsteady, no spinning. No neuropathy andn no pain. Has walker rollator but uses cart at store adn nothing at home. Objective Objective: Walks into PT hesitantly but I. Transfers I without UE, steps with one rail up and down. coordination reciprocal toe adn heel tapping OK, heel to bashir testing,. strength core adn hips 3/5, knees 4-/5. reflexes 3/3 patella and achilles Sensation wNL to gross light touch. Balance/Special Test Scores Functional Gait Assessment Score: 25 % Disability: 16.6700 Lower Extremity Functional Score: 36 TUG Test Time Seconds: 14 30 Second Chair Rise Test Seconds: 16 Goals Goal 1:: I appropriate HEP to limit future problems and maximize funciton Goal Time Frame: 4-6 Weeks Goal 2:: Improved FGA to 26/30 gaining a point for turning to help with safety. Goal Time Frame: 4-6 Weeks Goal 3:: Pt feel 70% improvement in overall activity level and mobility Goal Time Frame: 4-6 Weeks Rehabilitation Potential Physical Therapy Diagnosis: weakness and sedentarism causing gait deficits Rehabilitation Potential: Good Anticipated Interventions Patient/Client Instruction: Educate patient on: Condition and Risk Factors For the Purpose of:: To improve muscle performance and motor function and To increase tolerance to activity/condition/position Therapeutic Exercise to Include: Strength training, Balance training, Passive ROM and Active ROM For the Purpose of:: To decrease pain, To increase ROM, To improve nutrient delivery to tissue, To improve muscle performance and motor function, To improve ability of physical actions for home/community/work/leisure and To improve gait and locomotor functions Text: Thank you for the opportunity to evaluate your patient. For Medicare and Medicare HMO plans, please review the plan of care and approve it. It will need to be FAXED BACK to us at [phone] for Medicare purposes. For Medicare only, by signing this I certify the plan of care. Please let me know if there are questions or concerns regarding this plan of care. Physician Signature: D ate:
--- NOTE | 2025-06-27 15:57 | HP.PTDCSUM ---
Discharge Summary D/C summary: It has been my pleasure to treat SHYLA KENYON referred by Dr. Damien Hampton MD, with the diagnosis of malaise, abnormality of gait. for a total of 9 visit(s). Discharge Date: 06/27/25 Please see the following information for a summary of their discharge status. Subjective Subjective: Walking better. safer adn less pain and more confidence. Sleeping well. Activitiees: lives with son. Abby now and then. Basic ADLs. No f/u with doctor. HEP : regular Pain Back: Pain Intensity (Out of 10): Unrated Overall Improvement % Improvement: 80 Objective Objective/Function: +2 FGA Doing well on 30 sSTS feeling much better adn walking without AD safe adn I with confidence. Son present and agreeable to improvement adn d/c which is what patient wants. Goals Goal 1:: I appropriate HEP to limit future problems and maximize funciton Goal Progress: Goal Met Goal 2:: Improved FGA to gaining a point for turning to help with safety. Goal Progress: Goal Met Goal 3:: Pt feel 70% improvement in overall activity level and mobility Goal Progress: 80 Plan Plan: d/c to HEP D/C Information Discharge Comments: Will continue via HEP d/c sentence: If there are questions or concerns regarding this patient's physical therapy, please feel free to call me at [phone]. Thank you for the referral of this patient. Sincerely, José Miguel Minaay, DPT, OCS, CSCS Balance/Gait/Functional tests Balance/Special Test Scores Functional Gait Assessment Score: 27 % Disability: 10.0000 Lower Extremity Functional Score: 36 TUG Test Time Seconds: 14 Tug Test: <20 sec.=mostly independent 30 Second Chair Rise Test Seconds: 13 Improvement % Improvement: 80
== END 2025-06-27 19:00 | disposition home or self-care (01) ==
LOC: PT 15:30
PROVIDERS: PCP Family Medicine; Referring Provider Psychiatry & Neurology Neurology; Visit Provider Psychiatry & Neurology Neurology
DX: R26.9 Unspecified abnormalities of gait and mobility (principal); R53.81 Other malaise
CPT/HCPCS: 97110; 97116; 97161; 97164